=== PATIENT | male | born 2000 | race Caucasian/White ===

== ENCOUNTER 2022-05-25 12:59 | Outpatient (REF) | payer BC, SELFPAY ==
[2022-05-25 14:12] LABS: Lithium 0.21 mmol/L (0.60-1.20)
[2022-05-25 14:26] LABS: Alanine Aminotransferase 12 U/L (0-40); Albumin Level 4.8 g/dL (3.5-5.0); Alkaline Phosphatase 45 U/L (39-117); Anion Gap 12 (12-20); Aspartate Amino Transferase 17 U/L (5-37); Bilirubin Total 3.8 mg/dL (0.0-1.0); Blood Urea Nitrogen 12 mg/dL (9-16); Calcium 10.2 mg/dL (8.4-10.2); Carbon Dioxide 29 mmol/L (22-29); Chloride 102 mmol/L (96-108); Estimated Glomerular Filt Rate > 60; Glucose Random 76 mg/dL (60-115); Potassium 4.4 mmol/L (3.3-5.1); Sodium 139 mmol/L (135-145); Total Protein 7.1 g/dL (6.5-8.0)
[2022-05-25 14:47] LABS: Free T4 (Free Thyroxine) 1.17 ng/dL (0.71-1.85); Thyroid Stimulating Hormone 1.35 uIU/mL (0.32-4.0)
== END 2022-05-25 13:00 | disposition home or self-care (01) ==
LOC: HO.LAB 12:59
PROVIDERS: Visit Provider Nurse Practitioner Psychiatric/Mental Health
DX: F33.9 Major depressive disorder, recurrent, unspecified (principal)
CPT/HCPCS: 36415; 80053; 80178; 84439; 84443

== ENCOUNTER 2022-05-26 13:30 | Outpatient (RCR) | payer BC, SELFPAY ==
[2022-05-07 12:22] VITALS: BP 92/60; PULSE 68; TEMP 36.7
[2022-05-07 12:23] VITALS: BMI 20.9
--- NOTE | 2022-05-07 13:12 | HO.PS.ADMBH ---
HPI Date of Service: 05/07/22 Chief Complaint: bipolar Sources of Information: patient interviewed, chart reviewed and crisis/core team assessment reviewed HPI Narrative: Patient is a 21 year old male referred to PHP following crisis evaluation after patient reported suicidal ideation with plan. Reporting many years of depression, with symtoms worsening over the last several months, with recent loss of job identified as precipitating factor. He reports low energy, poor sleep, fair appetite, decreased self worth, constant worry, frequent tearfulness and thoughts of not wanting to be alive. Denies any history of attempts, although he has has frequent thoughts (car running in garage, hanging). At time of interview patient denies any thoughts of harming himself, denies thoughts of ending his life and identified his girlfriend as a protective factor. Trauma history reviewed in admission assessment. Outpatient psychiatric provider for the last 2 years. Does not have a therapist at this time Medication trials: - all of the ssri's -Lamictal -Risperdal -Wellbutrin -Most recently on Abilify, which he reports was effective in stabilizing mood, however when dose was increased to 5mg, patient reports extreme restlessness-? akathesia. Stopped Abiify about one week ago. -currently taking gabapentin BID which he reports is helpful with anxiety Reporting strong family history of Bipolar disorder, depression and suicide. Currently not employed. Reports losing several jobs--too overwhelmed at [employer] frustrated at other jobs and has quit Several times during interview patient reporting that he feels he has Bipolar II and is just waiting for the diagnosis on paper . This telegraphic typewriter installer inquired about patients motivation for diagnosis and he replied that his brother has Bipolar diagnosis and he has all the same symptoms. Also stated that he hopes to apply for disability while his medications are stabilized and mood managed. Reporting periods of irritability, spending a lot of money (unclear how often this has occured) Medical Evaluation Reviewed: Yes [facility] Medical History (Updated 05/09/22 @ 18:16 by Conchis Leach CNP) History of tachycardia IBS (irritable bowel syndrome) Post concussion syndrome Diagnostics Vital Signs (24Hr): Vital Signs - 24 hr 05/07/22 12:22 Temperature 98.1 F Pulse Rate 68 Blood Pressure 92/60 BMI result Body Mass Index 20.9 Meds/Allergies Meds Home Medications Medication Instructions Recorded Confirmed Type gabapentin 100 mg tablet 100 mg PO BID 05/07/22 05/07/22 History Allergies Allergies Allergy/AdvReac Type Severity Reaction Status Date / Time Dairy products Allergy Difficulty Uncoded 05/07/22 12:21 Swallowing Mental Status Exam Mental Status Exam Patient Appearance: Well Grooomed and Appropriate Level of Consciousness: Awake and Appropriate Patient Behavior: Appropriate and Talkative Mood Description: Calm Affect Description: Calm Patient Cognition Impaired: No Thought Process: Rumination Thought Content: positive for Intact Judgement: Fair Assessment & Plan Assessment & Plan (1) MDD (major depressive disorder), recurrent episode: Status: Acute Code(s): F33.9 - Major depressive disorder, recurrent, unspecified Assessment and Plan: Patient to review mood stabilizers over the weekend---reviewed lithium and trileptal. patient reporting anxiety and dislike of lab work. Wishes to review medications before trialing another medication Provided with mood questionnaire follow up next week Denies any thoughts of harming self--has plans for the weekend with friends Certification I certify that partial hospital treatment is medically necessary due to the symptoms and problems resulting from the patient's mental illness and the failure to treat the patient at the partial hospital level of care would likely result in the patient requiring inpatient psychiatric care which could not be prevented at a less intensive level of care.
[2022-05-07 15:04] LABS: Amphetamine Screen Urine Not Detected (Not Detect); Barbiturates, Urine Not Detected (Not Detect); Benzodiazepines Screen Urine Not Detected (Not Detect); Cannabinoid Screen Urine Not Detected (Not Detect); Cocaine Screen Urine Not Detected (Not Detect); Fentanyl, urine Not Detected (Not Detect); Opiate Screen Urine Not Detected (Not Detect); Phencyclidine Screen Urine Not Detected (Not Detect)
--- NOTE | 2022-05-11 16:55 | PC.NURSE ---
I met with pt and went over treatment plan, schedule, and aftercare options. He reported a desire to look for an individual therapist on his own before considering a referral to a community mental health agency. I gave him some resources to look into (psychology today search, insurance company list, etc).
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
--- NOTE | 2022-05-14 16:23 | PC.NURSE ---
I met with pt after he voices SI in group, and possible need for inpatient LOC. He shared that he told his girlfriend that he would suicide if she left for work yesterday, and that she stayed home with him. He said she subsequently contacted his parents stating her concern for him when he's not in PHP. He said he meant it that he would suicide. I suggested he go to crisis for an evaluation, and he expressed ambivalence and fear of this, and asked a lot of questions. Staff explained that we need to protect him if he is suicidal, and he said he would consider a crisis evaluation but wants to call his parents first. He spoke to his father for quite a while with staff present, and they argued for a time when pt expressed anger about father's invalidation neglect of his emotional and financial state. The discussion then became calmer, and pt said he wanted to talk further with his parents when he gets home. At this point, Ana, the program nurse joined us and we poke further about pt's needs and thoughts. At this point he said that the SI he voiced was out of anger and not serious, and said he would not act on the SI that he voiced. He clearly stated that he does not have a plan or intent to suicide, and that he wants to work on more direct communication. He assured staff that he will call crisis or 911 if he feels a similar way or gets SI over the weekend. He said he will have the crisis number on him, and programmed it in his phone. Ana offered to give pt a copy of his safety plan, and he said he would keep it in his wallet. After meeting with pt, I was informed by the program plating tank operator apprentice that pt's mother emailed this morning, expressing concern for his after his girlfriend contacted her yesterday about pt's SI. After speaking with staff, I met with pt again and he called his mother to reassure her that he is not going to harm herself I spoke with her as well about pt's safety planning, and said to call 911 or crisis if she becomes concerned again.
--- NOTE | 2022-05-18 15:44 | P.PNPSP_ITS ---
Subjective Subjective Date of Service: 05/18/22 Reason For Visit: bipolar Medical Problems Affecting Mental Status: No Interim History: Reports had SI over past week, with increased depression and anger, states ?I was really down on myself ?. States last few days mood has improved somewhat, continues with some anxiety. Interested in starting mood stabilizer at this time. Denies SI at this time. Finding gabapentin is helping somewhat with anxiety symptoms. Medication Compliance: Yes Side effects from medications: No Attending Groups: Yes Review of Systems Acute medical concerns: No Medical Review of Systems: unchanged Review of Systems Review of Systems Yes all other systems are reviewed and are negative Constitutional: Reports no additional constitutional complaints Mental Status Exam Mental Status Exam Narrative: NAD Patient Appearance: Well Grooomed and Appropriate Level of Consciousness: Awake and Appropriate Patient Behavior: Appropriate, Talkative and Good Eye Contact Mood Description: Anxious Affect Description: Anxious Patient Cognition Impaired: No Ability to Follow Directions: Good Speech Pattern: Clear and Appropriate Memory Description: Intact Hallucinations: None Delusions: Not Present Thought Process: Intact Thought Content: positive for Intact Depressive Symptoms: Increased Anxiety, Loss of Int. in Activity and Thoughts of /Suicide (over past week, none today) Judgement: Fair Diagnostics Vital Signs (24Hr): BMI result Body Mass Index 20.9 Assessment & Plan Assessment & Plan (1) MDD (major depressive disorder), recurrent episode: Status: Acute Code(s): F33.9 - Major depressive disorder, recurrent, unspecified Assessment and Plan: Patient reports episodes of hypomanic symptoms. States he would like to try a m ood stabilizer, as he believes he possibly could have bipolar disorder rather than unipolar depression. Reports took Abilify for several weeks recently, stopped as he did not like affect. Reports taking Lamictal in the past, did not like it and stopped it due to a rash. States he spoke with his psychiatric provider yesterday,Flores Davis NP, who also suggested a mood stabilizer at this time. Willing to try either lithium or Trileptal. A discussion was had regarding both medications, including risks, benefits, alternatives. Questions were answered to his satisfaction. At this time is agreeable to start lithium. Plan 1. Continue with current [facility] plan of care. 2. Start lithium 300 mg at bedtime. 3. Obtain lab work in 1 week. 4. Follow-up as per protocol. Patient educated on: diagnosis, medication risk/benefits and therapeutic strategies Informed Consent: understands Reason for contiued partial hosp. stay Substantial Risk for: harm to self, inability to function and rapid decompensation Certification I certify that partial hospital treatment is medically necessary due to the symptoms and problems resulting from the patient's mental illness and the failure to treat the patient at the partial hospital level of care would likely result in the patient requiring inpatient psychiatric care which could not be prevented at a less intensive level of care. I spent minutes with the patient and/or on the patient floor today, greater than?50% of which was spent counseling/coordinating care. Discharge Plan Discharge Attending provider: Robel Reyes Medications: New lithium carbonate 300 mg capsule 300 mg PO BEDTIME Qty: 7 0RF No Action gabapentin 100 mg Tablet 100 mg PO BID Rx Instructions: Take in the morning and afternoon.
--- NOTE | 2022-05-25 15:36 | PM.EVENT ---
Event Note Date of Service: 05/25/22 Event Note: Reviewed labs, called patient and recommend stip lithium due to bilirubin 3.8 mg/dl. Will f/u with patient tomorrow.
--- NOTE | 2022-05-26 08:18 | PC.NURSE ---
At pt's request, I emailed a referral for pt to see a therapist at [facility].
--- NOTE | 2022-05-26 12:36 | HO.PHPPROGNO ---
Subjective Subjective Date of Service: 05/26/22 Reason For Visit: bipolar Medical Problems Affecting Mental Status: No Interim History: Describes mood today as ?more numb than depressed ?. States mood continues to fluctuate from day to day, describes as ?all over the place ?. No SI, no safety concerns. Reports he believes he has borderline personality disorder, possibly mixed with bipolar disorder. Finding morning core group helpful, states difficulty with coping skills groups. Medication Compliance: Yes Side effects from medications: No Attending Groups: Yes Review of Systems Acute medical concerns: No Medical Review of Systems: unchanged Review of Systems Review of Systems Yes all other systems are reviewed and are negative Constitutional: Reports no additional constitutional complaints Mental Status Exam Mental Status Exam Narrative: NAD Patient Appearance: Well Grooomed and Appropriate Level of Consciousness: Awake and Appropriate Patient Behavior: Appropriate, Cooperative and Good Eye Contact Mood Description: Appropriate Affect Description: Appropriate Patient Cognition Impaired: No Ability to Follow Directions: Excellent Speech Pattern: Clear and Appropriate Memory Description: Intact Hallucinations: None Delusions: Not Present Thought Process: Intact Thought Content: positive for Intact Depressive Symptoms: Increased Anxiety and Loss of Int. in Activity Judgement: Fair Diagnostics Vital Signs (24Hr): BMI result Body Mass Index 20.9 Labs Labs: Reviewed recent lab work completed, including elevated bilirubin. Assessment & Plan Assessment & Plan (1) MDD (major depressive disorder), recurrent episode: Status: Acute Code(s): F33.9 - Major depressive disorder, recurrent, unspecified Assessment and Plan: Describes mood today as ?more numb than depressed ?. States mood continues to fluctuate from day to day, describes as ?all over the place ?. Reports sleep varies. States he has trouble falling asleep, wakes up several times during night. Reports relationship concerns, increased impulsive behaviors. Reports appetite switches between not eating enough or overeating. No SI, no safety concerns. Reports he believes he has borderline personality disorder, possibly mixed with bipolar disorder. Patient completed Pablo screening instrument for BPD. Checked yes for each of the 10 questions. We discussed symptoms of borderline personality disorder, as well as symptoms of bipolar 2 disorder. States that he has a huge family of bipolar disorder including suicides. Reviewed labs. [place] discontinued. Discussion of Trileptal, including risks, benefits, side effects, alternatives to treatment. Patient agreeable to starting medication at this time. Finding morning core group helpful, states difficulty with coping skills groups. Plan 1. Continue with current [facility] plan of care. 2. DC lithium. 3. Start Trileptal 300 mg b.i.d.. 4. Repeat labs Tuesday06/01/22. 5. Follow-up as per protocol. Patient educated on: diagnosis, medication risk/benefits and therapeutic strategies Informed Consent: understands Reason for contiued partial hosp. stay Substantial Risk for: harm to self and inability to function Certification I certify that partial hospital treatment is medically necessary due to the symptoms and problems resulting from the patient's mental illness and the failure to treat the patient at the partial hospital level of care would likely result in the patient requiring inpatient psychiatric care which could not be prevented at a less intensive level of care. I spent minutes with the patient and/or on the patient floor today, greater than?50% of which was spent counseling/coordinating care. Discharge Plan Discharge Attending provider: Robel Reyes Medications: New oxcarbazepine [Trileptal] 300 mg tablet 300 mg PO BID 7 Days Qty: 14 0RF No Action gabapentin 100 mg Tablet 100 mg PO BID Rx Instructions: Take in the morning and afternoon.
--- NOTE | 2022-05-27 09:26 | PC.NURSE ---
I called pt after he did not show for community meeting and did not call. He answered the phone and I spoke to him. He reported plans to go to the ED for evaluation. He said Im ready to be hospitalized now. My bags are packed. It's time. I'm going to need you guys to walk me down when I get there. Pt was driving as he spoke. He did not sound tearful or in pressured. He agreed to take himself to the ED and I agreed to call the CARE team.
--- NOTE | 2022-05-27 09:38 | PC.NURSE ---
I called the CARE team in the ED to inform them that pt is on his way to the ED for evaluation. I spoke to Cecily and she took some demographic and clinical information. She said she would call me if pt does not show up within the hour.
== END 2022-05-26 23:59 | disposition admitted as inpatient to this hospital (09) ==
LOC: HO.PHPA 13:30
PROVIDERS: Nurse Practitioner Psychiatric/Mental Health; Visit Provider Psychiatry & Neurology Psychiatry
DX: F33.9 Major depressive disorder, recurrent, unspecified (principal); Z79.899 Other long term (current) drug therapy
CPT/HCPCS: 80307; 90791; 90853

== ENCOUNTER 2022-05-27 09:39 | Inpatient (IN) | payer BC, SELFPAY ==
--- NOTE | ~2022-05-27 | CT_ITS ---
EXAMINATION: CT HEAD WITHOUT CONTRAST CLINICAL INFORMATION: Syncope. Question seizure COMPARISON: None TECHNIQUE: Contiguous axial imaging was performed from the skull base to vertex without intravenous administration of contrast. This CT examination was performed using dose optimization techniques as appropriate, variously including the following: *Automated exposure control *Adjustment of mA and/or kV according to patient size (this includes techniques or standardized protocols for targeted exams where dose is matched to indication/reason for exam; i.e. extremities or head) *Use of iterative reconstruction technique DLP: 764 mGy-cm FINDINGS: There is no acute intra-axial, extra-axial bleed, masses, collection or midline shift. The renee to white matter differentiation is maintained normal. There is a hyper and a hypodense areas in the umu likely the morning artifact from the petrous bones. The lateral ventricles are symmetrical in size and configuration without enlargement. The renee to white matter differentiation is maintained. Bone windows reveal no calvarial abnormality. There is no scalp soft tissue abnormality. CT/CT head/brain wo IV con IMPRESSION: No acute intracranial process seen.
[2022-05-27 09:45] VITALS: BP 115/77; PULSE 65; RESP 20; TEMP 36.7; O2SAT 99; BMI 21.4
--- NOTE | 2022-05-27 09:59 | ED_ITS ---
HPI - General Adult General Chief complaint: Psychiatric Symptoms Stated complaint: CRISIS Time Seen by Provider: 05/27/22 09:58 Source: patient Mode of arrival: ambulatory Limitations: no limitations History of Present Illness HPI narrative: Patient is a 21 year old male presenting to the emergency department today with increased racing thoughts and suicidal ideation. Patient states that as of lately his thoughts have been much harder to sort through and he is feeling suicidal. Patient states that he called the crisis line and they recommended he come in to the hospital. Patient denies any dizziness, lightheadedness, abdominal pain, nausea, vomiting, fever, chills, blurry vision, double vision, loss of vision, chest pain, difficulty breathing, shortness of breath, back pain, night sweats, pain with urination, increased urinary frequency, increased urinary urgency, blood in his urine or stool, syncope or a near syncopal episode, recent trauma or falls, bowel incontinence, bladder incontinence, bowel retention, bladder retention, or any other complaints at this time. Radiation: non-radiation Severity: mild Severity scale (1-10): 3 Relieving factors: none Exacerbating factors: none Associated symptoms: denies other symptoms Treatments prior to arrival: none Related Data Home Medications Medication Instructions Recorded Confirmed gabapentin 100 mg tablet 100 mg PO BID 05/07/22 05/07/22 Previous Rx's Medication Instructions Recorded oxcarbazepine 300 mg tablet 300 mg PO BID 7 days #14 tabs 05/26/22 (Trileptal) Allergies Allergy/AdvReac Type Severity Reaction Status Date / Time Dairy products Allergy Difficulty Uncoded 05/07/22 12:21 Swallowing Review of Systems Constitutional: Constitutional: Reports no additional constitutional complaints, Denies chills, Denies fever(s) and Denies night sweats Eyes: Eyes: Reports no additional eye complaints, Denies blurry vision, Denies change in vision, Denies diplopia, Denies eye discharge, Denies loss of vision and Denies eye pain ENT: Denies dizziness Cardiovascular: Cardiovascular: Reports no additional cardiovascular complaints, Denies chest pain, Denies lightheadedness, Denies Loss of Consciousness and Denies dyspnea Respiratory: Respiratory: Reports no additional respiratory complaints and Denies dyspnea Gastrointestinal: Gastrointestinal: Reports no additional gastrointestinal complaints, Denies abdominal pain, Denies melena, Denies hematochezia, Denies change in bowel habits and Denies change in stool character Genitourinary: Genitourinary: Reports no additional male genitourinary complaints, Denies hematuria, Denies oliguria, Denies difficulty urinating, Denies dysuria, Denies urinary frequency, Denies urinary hesitancy, Denies urinary incontinence and Denies urinary urgency Musculoskeletal: Musculoskeletal: Reports no additional musculoskeletal complaints, Denies numbness and Denies tingling Neurologic: Denies dizziness, Denies loss of vision, Denies numbness and Denies tingling Psychiatric: Psychiatric: Reports no additional psychiatric complaints and Reports suicidal ideation Endocrine: Endocrine: Reports no additional endocrine complaints Hematologic/Lymphatic: Hematologic/Lymphatic: Reports no additional hematologic/lymphatic complaints Allergic/Immunologic: Allergic/Immunologic: Reports no additional allergic/immunologic complaints [facility] Past Medical History Attestation statement: The following information was validated with the patient. Source: old records reviewed Medical History History of tachycardia IBS (irritable bowel syndrome) Post concussion syndrome Social History Social History Household Members: Significant Other and Family Patient Tobacco Use Status: Former Tobacco user Advance Directives: No Advance Directives Information Provided: No Healthcare Proxy: No Guardian: No Physical Exam ED Vital Signs: Vital Signs - 24 hr 05/27/22 09:45 Temperature 98.0 F Pulse Rate 65 Respiratory Rate 20 Blood Pressure 115/77 Pulse Oximetry 99 Oxygen Delivery Method Room Air BMI result Body Mass Index 21.4 Const General: cooperative, no acute distress, alert and awake Nutritional Appearance: well nourished Orientation/consciousness: patient oriented x3 Limitations: no limitations [facility] Head: Yes normal to inspection and Yes atraumatic Ears: hearing grossly normal bilaterally and external ears normal General nose exam: Normal external nose present, no nasal discharge noted and no epistaxis Face and sinus: Yes normal facial exam, No abrasion and No laceration Mouth: Normal oral and palatal mucosa present, no drooling and no muffled voice Eyes General: appearance normal, both eyes and all related structures Periorbital: periorbital findings normal Eyelids: Yes eyelids normal Conjunctivae: conjunctivae normal Pupils: Equal, round and reactive pupils present EOM: EOMs intact bilaterally Neck Neck: Yes normal visual inspection, Yes full ROM and Yes no lymphadenopathy Chest Chest palpation & inspection: normal inspection of the chest Resp Effort & Inspection: normal respiratory effort and able to speak in complete sentences Auscultation: clear to auscultation bilaterally Cardio Rate: regular rate Rhythm: regular rhythm GI Inspection: Yes normal to inspection Neuro General: patient oriented x3 and moves all extremities Cranial nerves: Yes Equal, round and reactive pupils present Cognition (Neuro): normal cognition Motor exam (neuro): 5/5 motor strength present throughout Sensory Exam: Normal double simultaneous stimulation for sensation Coordination: [id number] test normal Extrem General: Yes normal to inspection, Yes full ROM and Yes capillary refill normal Psych Appearance: grossly normal Mental Status: mental status grossly normal Affect: normal affect Attitude: cooperative Thought process: Normal thought process present Thought content: Normal thought content present Insight: Good insight present (Psych) Medical Decision Making MDM Narrative Medical decision making narrative: Patient is a 21 year old male presenting to the emergency department today with suicidal ideation. Patient's physical exam was unremarkable. Patient's blood work was unremarkable. I explained my physical exam findings as well as all test results to the patient. I answered all questions asked by the patient. Patient was evaluated by CARE team who recommended admission for the patient for psychiatric care. Patient verbalized agreement and understanding with this treatment plan and admission. Medical Records Medical records reviewed: Yes I reviewed the patient's medical records. Lab Data Lab results reviewed: Yes I reviewed the patient's lab results. Result diagrams: 05/27/22 10:10 05/27/22 10:10 Labs: Lab Results 05/27/22 05/27/22 05/27/22 Range/Units 10:05 10:10 10:10 WBC 5.7 (4.8-10.8) X10*3/uL RBC 4.83 (4.60-5.80) X10*6/uL Hgb 14.6 (14.0-18.0) g/dl Hct 42.1 (42.0-52.0) % MCV 87.2 (80.0-98.0) fL MCH 30.2 (27.0-33.0) pg MCHC 34.7 (31.0-36.0) g/dl RDW 11.8 (11.0-16.0) % Plt Count 235 (160-400) X10*3/uL MPV 9.2 L (9.4-12.4) fL Immature Gran % (Auto) 0.2 (0.0-0.4) % Neut % (Auto) 53.0 (45-73) % Lymph % (Auto) 37.7 (20-40) % Grant % (Auto) 6.5 (2-11) % Eos % (Auto) 2.1 (0-4) % Baso % (Auto) 0.5 (0-2) % Lymph # (Auto) 2.1 (1.2-4.9) X10*3/uL Grant # (Auto) 0.4 (0.1-1.2) X10*3/uL Eos # (Auto) 0.1 (0.0-0.4) X10*3/uL Baso # (Auto) 0.0 (0.0-0.2) X10*3/uL Abs Immat Gran (auto) 0.01 (0.00-0.03) X10*3/uL Absolute Neuts (auto) 3.0 (2.0-8.3) x10*3/uL Absolute Nucleated RBC 0.000 (0.0-0.012) X10*3/uL Nucleated RBC % (auto) 0.0 (0.0-0.2) /100WBC Sodium 140 (135-145) mmol/L Potassium 4.2 (3.3-5.1) mmol/L Chloride 104 (96-108) mmol/L Carbon Dioxide 29 (22-29) mmol/L Anion Gap 11 L (12-20) BUN 13 (9-16) mg/dL Creatinine 0.86 (0.5-1.4) mg/dL Estim Creat Clear Calc 126.4 Estimated GFR > 60 Random Glucose 89 (60-115) mg/dL Calcium 9.6 (8.4-10.2) mg/dL Total Bilirubin 2.0 H (0.0-1.0) mg/dL AST 13 (5-37) U/L ALT 9 (0-40) U/L Alkaline Phosphatase 46 (39-117) U/L Total Protein 6.7 (6.5-8.0) g/dL Albumin 4.5 (3.5-5.0) g/dL Salicylates < 5.0 L (15-30) mg/dL Urine Opiates Screen (Not Detect) Urine Fentanyl Screen (Not Detect) Acetaminophen < 1 (<30) mcg/mL Ur Barbiturates Screen (Not Detect) Ur Phencyclidine Scrn (Not Detect) Ur Amphetamines Screen (Not Detect) U Benzodiazepines Scrn (Not Detect) Urine Cocaine Screen (Not Detect) U Marijuana (THC) Screen (Not Detect) Ethyl Alcohol < 10 mg/dL COVID-19 (ALESSIO) Negative (Negative) COVID-19 Clin Com See Note 05/27/22 Range/Units 15:54 WBC (4.8-10.8) X10*3/uL RBC (4.60-5.80) X10*6/uL Hgb (14.0-18.0) g/dl Hct (42.0-52.0) % MCV (80.0-98.0) fL MCH (27.0-33.0) pg MCHC (31.0-36.0) g/dl RDW (11.0-16.0) % Plt Count (160-400) X10*3/uL MPV (9.4-12.4) fL Immature Gran % (Auto) (0.0-0.4) % Neut % (Auto) (45-73) % Lymph % (Auto) (20-40) % Grant % (Auto) (2-11) % Eos % (Auto) (0-4) % Baso % (Auto) (0-2) % Lymph # (Auto) (1.2-4.9) X10*3/uL Grant # (Auto) (0.1-1.2) X10*3/uL Eos # (Auto) (0.0-0.4) X10*3/uL Baso # (Auto) (0.0-0.2) X10*3/uL Abs Immat Gran (auto) (0.00-0.03) X10*3/uL Absolute Neuts (auto) (2.0-8.3) x10*3/uL Absolute Nucleated RBC (0.0-0.012) X10*3/uL Nucleated RBC % (auto) (0.0-0.2) /100WBC Sodium (135-145) mmol/L Potassium (3.3-5.1) mmol/L Chloride (96-108) mmol/L Carbon Dioxide (22-29) mmol/L Anion Gap (12-20) BUN (9-16) mg/dL Creatinine (0.5-1.4) mg/dL Estim Creat Clear Calc Estimated GFR Random Glucose (60-115) mg/dL Calcium (8.4-10.2) mg/dL Total Bilirubin (0.0-1.0) mg/dL AST (5-37) U/L ALT (0-40) U/L Alkaline Phosphatase (39-117) U/L Total Protein (6.5-8.0) g/dL Albumin (3.5-5.0) g/dL Salicylates (15-30) mg/dL Urine Opiates Screen Not Detected (Not Detect) Urine Fentanyl Screen Not Detected (Not Detect) Acetaminophen (<30) mcg/mL Ur Barbiturates Screen Not Detected (Not Detect) Ur Phencyclidine Scrn Not Detected (Not Detect) Ur Amphetamines Screen Not Detected (Not Detect) U Benzodiazepines Scrn Not Detected (Not Detect) Urine Cocaine Screen Not Detected (Not Detect) U Marijuana (THC) Screen Not Detected (Not Detect) Ethyl Alcohol mg/dL COVID-19 (ALESSIO) (Negative) COVID-19 Clin Com Discharge Plan Discharge Clinical Impression: MDD (major depressive disorder), recurrent episode Patient Disposition: Still a Patient Instructions: Depression (ED) Prescriptions: No Action gabapentin 100 mg Tablet 100 mg PO BID Rx Instructions: Take in the morning and afternoon. oxcarbazepine [Trileptal] 300 mg tablet 300 mg PO BID 7 Days Qty: 14 0RF Print Language: Kiswahili
[2022-05-27 10:20] LABS: MANUAL DIFF FLAG NO
[2022-05-27 10:21] LABS: Basophils Percent Auto 0.5 % (0-2); Eosinophils Absolute Auto 0.1 X10*3/uL (0.0-0.4); Eosinophils Percent Auto 2.1 % (0-4); Hematocrit 42.1 % (42.0-52.0); Hemoglobin 14.6 g/dl (14.0-18.0); Imm Gran Abs Auto 0.01 X10*3/uL (0.00-0.03); Imm Gran Pct Auto 0.2 % (0.0-0.4); Lymphocytes Absolute Auto 2.1 X10*3/uL (1.2-4.9); Lymphocytes Percent Auto 37.7 % (20-40); Mean Corpuscular HGB Conc 34.7 g/dl (31.0-36.0); Mean Corpuscular Hemoglobin 30.2 pg (27.0-33.0); Mean Corpuscular Volume 87.2 fL (80.0-98.0); Mean Platelet Volume 9.2 fL (9.4-12.4); Monocytes Absolute Auto 0.4 X10*3/uL (0.1-1.2); Monocytes Percent Auto 6.5 % (2-11); Platelet Count 235 X10*3/uL (160-400); Red Blood Count 4.83 X10*6/uL (4.60-5.80); Red Cell Distribution Width 11.8 % (11.0-16.0); White Blood Count 5.7 X10*3/uL (4.8-10.8)
[2022-05-27 10:43] LABS: Acetaminophen LAB < 1 mcg/mL (<30); Alanine Aminotransferase 9 U/L (0-40); Albumin Level 4.5 g/dL (3.5-5.0); Alkaline Phosphatase 46 U/L (39-117); Anion Gap 11 (12-20); Aspartate Amino Transferase 13 U/L (5-37); Blood Urea Nitrogen 13 mg/dL (9-16); Calcium 9.6 mg/dL (8.4-10.2); Carbon Dioxide 29 mmol/L (22-29); Chloride 104 mmol/L (96-108); Creatinine Clr Calc Pharmacy 126.4; Estimated Glomerular Filt Rate > 60; Ethanol < 10 mg/dL; Glucose Random 89 mg/dL (60-115); Potassium 4.2 mmol/L (3.3-5.1); Salicylate < 5.0 mg/dL (15-30); Sodium 140 mmol/L (135-145); Total Protein 6.7 g/dL (6.5-8.0)
[2022-05-27 10:59] LABS: COVID-19 Test Negative (Negative); IDNOW Serial# 9DB6401D
[2022-05-27 16:25] LABS: Amphetamine Screen Urine Not Detected (Not Detect); Barbiturates, Urine Not Detected (Not Detect); Benzodiazepines Screen Urine Not Detected (Not Detect); Cannabinoid Screen Urine Not Detected (Not Detect); Cocaine Screen Urine Not Detected (Not Detect); Fentanyl, urine Not Detected (Not Detect); Opiate Screen Urine Not Detected (Not Detect); Phencyclidine Screen Urine Not Detected (Not Detect)
[2022-05-27 23:19] VITALS: BP 116/68; PULSE 72; RESP 16; TEMP 36.7; O2SAT 99
[2022-05-27 23:45] VITALS: BP 104/59; PULSE 55; RESP 18; TEMP 36.9; O2SAT 99
[2022-05-28] MEDS: hydrOXYzine HCL 25 MG TABLET PO (00:28)
[2022-05-28] MEDS: Gabapentin 100 MG CAPSULE PO ×3 (00:42→20:50)
[2022-05-28 04:42] VITALS: BMI 21.4
--- NOTE | 2022-05-28 05:52 | PC.ADMIT ---
Pt is a 21 year old male admitted to the unit after referral from the CARE team at [facility]. Arrived on unit at 2340. Legal status: CV. Medical: pt reports hx tachycardia, unsure age of onset, denies current treatment. Substance use: pt reports having 1 beer every tuesday after his hockey game. Denies current or hx of other substance use. Pt has 1 prior inpatient admission at [facility] approx. 1 month ago after a reported suicide attempt of trying to hang himself. Pt reported that he has been suffering from depression, anxiety, and PTSD since approx. 10 years old. He reported being diagnosed with bipolar d/o a few months ago and curently being in the process of being diagnosed with borderline personality d/o. He states that he has been feeling suicidal for about 2 years, states mostly passive SI of thoughts of not wanting to live anymore. Pt states he had been attending PHP at [facility] when he was referred for assessment for inpatient admission. He reports occasional AH of people yelling at him. He states he has been either oversleeping or not sleeping well and waking frequently throughout the night. Pt reports that he tends to overeat or not eat much when feeling stressed. He reports gaining 10 lbs since being admitted at [facility]. Pt acknowledges a hx of PTSD and experiencing flaashbacks and nightmares. Pt is hoping to be arranged with a new therapist after discharge. Pt denies current active SI, but does report passive thoughts; he reports feeling safe on the unit and will seek out staff if needed. He was cooperative throughout assessment, some anxiety reported. Provider notified of admission and orders obtained. Pt placed on 15 minute safety checks.
[2022-05-28 08:00] VITALS: BP 55/28; PULSE 51; TEMP 36.7; O2SAT 98
[2022-05-28 08:10] VITALS: BP 55/24; PULSE 54; RESP 20; TEMP 36.7; O2SAT 97
--- NOTE | 2022-05-28 08:27 | PM.EVENT ---
Documented by User: ROSALINA Nguyen 05/28/22 16:29 Event Note Date of Service: 05/28/22 Event Note: Rapid response called on pt around 815am this morning for seizure during blood draw. 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 No other tonic/clonic movements. Pt has no history seizures but does report hx vasovagal episodes during blood draws. Pt disoriented upon waking but quickly becomes lucid and is a&o x4. VS BP 102/55, HR 55, 100% RA. Heart RRR, no murmurs, lungs cta. No pallor. EKG shows NSR. Pt feels tired but denies ongoing lightheadedness. No cp, sob, palpitations, headaches, confusion. Post like vasovagal reaction to blood draw. However, given seizure reported by staff, will order neuro checks, neuro consult, and head ct. Orhostatic vs in several hours. Recommend increased fluid intake. Will recheck pt in several hours. Documented by User: Jared Baron MD 05/30/22 12:04 Event Note Date of Service: 05/30/22
[2022-05-28 08:59] LABS: Glucose, Whole Blood 80 mg/dL (60-115)
[2022-05-28 09:12] LABS: Estimated Average Glucose 88 mg/dL; Hemoglobin A1c % 4.7 %
[2022-05-28 10:02] LABS: Free T4 (Free Thyroxine) 1.13 ng/dL (0.71-1.85); Thyroid Stimulating Hormone 1.61 uIU/mL (0.32-4.0)
[2022-05-28 10:06] LABS: Folate 13.6 ng/mL (> or = 4.0); Vitamin B12 288 pg/mL (200-900)
[2022-05-28 10:51] LABS: Alanine Aminotransferase 8 U/L (0-40); Albumin Level 4.2 g/dL (3.5-5.0); Alkaline Phosphatase 45 U/L (39-117); Anion Gap 13 (12-20); Aspartate Amino Transferase 13 U/L (5-37); Bilirubin Total 3.4 mg/dL (0.0-1.0); Blood Urea Nitrogen 14 mg/dL (9-16); Calcium 9.6 mg/dL (8.4-10.2); Carbon Dioxide 28 mmol/L (22-29); Chloride 104 mmol/L (96-108); Cholesterol 129 mg/dL; Creatinine Clr Calc Pharmacy 123.5; Estimated Glomerular Filt Rate > 60; Glucose Fasting 84 mg/dL (60-99); HDL Cholesterol 42 mg/dL; LDL Cholesterol Calculated 70 mg/dl; Potassium 4.1 mmol/L (3.3-5.1); Sodium 141 mmol/L (135-145); Total Protein 6.5 g/dL (6.5-8.0); Triglycerides 87 mg/dL
[2022-05-28 12:00] VITALS: BP 114/58; PULSE 67
--- NOTE | 2022-05-28 12:01 | PM.NEUROCN ---
History of Present Illness Data of Consult Service Date: 05/28/22 Primary Care Provider: Unknown Physician HPI Reason for consult: Syncope 21 years old man I was asked to see on psychiatric floor. He was admitted there for racing thoughts and suicidal ideation. At 1 point a follow-up bottom is was drawing blood when he passed out. He said that he was laying in his bed flat when that happened. In the past he had either passed out or feeling of passing out while drawing blood. This time he was noted to be unresponsive and some convulsion were noted in his arms. he became responsive after few seconds and there was no obvious postictal confusion. Review of Systems Review of Systems: No recent shortness of breath palpitation or seizure-like episode PMFSH Past Medical History Medical History History of tachycardia IBS (irritable bowel syndrome) Post concussion syndrome Social History Social History Household Members: Family Household Members Other:: lives w/ mother & girlfriend Housing: House Do you presently have visiting nurse or other home services: No Patient Tobacco Use Status: Former Tobacco user Use of substances other than those prescribed or required for medical reasons: No Have you been hit, kicked, punched, or otherwise hurt by someone within the past year? If so, by whom?: No Do you feel safe in your current relationship?: Yes Is there a partner from a previous relationship who is making you feel unsafe now?: No Are you made to feel afraid or neglected: No Spiritual Healthcare Practices: none identified Yarsanism Healthcare Practices: none identified Cultural Healthcare Practices: none identified Advance Directives: No Advance Directives Information Provided: No Healthcare Proxy: No Guardian: No Do you have thoughts of harming others: None Do you have a plan to hurt others: No Plan Recently lost weight without trying: No Eating poorly because of decreased appetite: Yes Nutrition Risks: Recent weight gain Poor oral hygiene: No service: No Sexual orientation: Straight/Heterosexual Meds Allergies Allergy/AdvReac Type Severity Reaction Status Date / Time Dairy products Allergy Difficulty Uncoded 05/28/22 04:43 Swallowing Active Medications: Current Medications Acetaminophen (Acetaminophen 325 Mg Tablet) 650 mg PO Q6H PRN PRN Reason: Headache/Pain Mild Scale (1-3) Al Hydroxide/Mg Hydroxide (Magnesium Hydrox/Alum Hydrox 30 Ml Oral.Susp) 30 ml PO Q6H PRN PRN Reason: Heartburn/Nausea Aripiprazole (Aripiprazole 5 Mg Tablet) 5 mg PO DAILY [facility] Last Admin: 05/28/22 11:46 Dose: Not Given Gabapentin (Gabapentin 100 Mg Capsule) 100 mg PO BID [facility] Last Admin: 05/28/22 11:46 Dose: 100 mg Hydroxyzine HCl (Hydroxyzine Hcl 25 Mg Tablet) 25 mg PO Q6H PRN PRN Reason: Anxiety Last Admin: 05/28/22 00:28 Dose: 25 mg Lamotrigine (Lamotrigine 25 Mg Tablet) 25 mg PO DAILY [facility] Last Admin: 05/28/22 11:47 Dose: Not Given Magnesium Hydroxide (Milk Of Magnesia 30 Ml Oral.Susp) 30 ml PO DAILY PRN PRN Reason: Constipation Oxcarbazepine (Oxcarbazepine 300 Mg Tablet) 300 mg PO BID [facility] Last Admin: 05/28/22 11:47 Dose: Not Given Trazodone HCl (Trazodone Hcl 50 Mg Tablet) 50 mg PO BEDTIME PRN PRN Reason: Insomnia Home Medications Medication Instructions Recorded Confirmed Last Taken Type gabapentin 100 mg capsule 100 mg PO BID 05/27/22 05/27/22 Unknown History oxcarbazepine 300 mg tablet 1 tab PO BID 05/27/22 05/27/22 Unknown History Physical Exam Vital Signs: Vital Signs: Last Vital Signs Temp 98.1 F 05/28/22 08:10 Pulse 54 05/28/22 08:10 Resp 20 05/28/22 08:10 BP 55/24 L 05/28/22 08:10 Pulse Ox 97 05/28/22 08:10 O2 Del Method 05/28/22 08:10 BMI result Body Mass Index 21.4 Neuro: Other: he was alert and awake with normal spontaneity of speech fluency comprehension and affect. Pupils are equal and reactive to light extraocular muscles are intact. Visual watt are full. Face is symmetrical. There is no pronator drift. Deep tendon reflexes are 1+ with flexor plantars. Balance gait and coordination are normal. Speech is normal. Results Labs CBC & Chem 7: 05/27/22 10:10 05/28/22 07:56 Labs: BMP 05/28/22 07:56 Sodium 141 Potassium 4.1 Chloride 104 Carbon Dioxide 28 BUN 14 Creatinine 0.88 Calcium 9.6 Liver Function 05/28/22 Range/Units 07:56 Total Bilirubin 3.4 H (0.0-1.0) mg/dL AST 13 (5-37) U/L ALT 8 (0-40) U/L Alkaline Phosphatase 45 (39-117) U/L Albumin 4.2 (3.5-5.0) g/dL Noncontrast head CT did not reveal any significant abnormality. His blood pressure numbers were significantly low and the last blood pressure was 55/24. Assessment and Plan (1) Vasovagal syncope: Status: Acute (2) Convulsive syncope: Status: Acute 21 years old man with previous history of either feeling lightheaded or passing out while having blood draw had a similar episode with unresponsiveness and few seconds of convulsion or stiffness of arms. His blood pressure around that time was low and even his last mean arterial pressure was 63, which was low. Likely explanation was drop in blood pressure due to blood draw and resulting convulsive syncope. He should be advised to have this kind of activity in flat position and should also consider elevating his legs at that time. Some patients are much more prone to this type of problem if there underlying blood pressure is on the lower side, which seems to be in his case. Caution is also advised while prescribing medicines to avoid drop in blood pressure Procedures Date of Service Date of Service: 05/28/22
--- NOTE | 2022-05-28 15:54 | HO.PSYADMNOT ---
HPI Date of Service: 05/28/22 Chief Complaint: Recurrent Major Depression; SI Sources of Information: patient interviewed, chart reviewed and crisis/core team assessment reviewed HPI Subjective Notes: Shukla Warning and Conditional Voluntary Narrative: Patient is a 21 year old male with a history of anxiety, depression, possibly PTSD, encouraged by PHP to self present for depression and suicidal thinking. Patient reports that he has been overall depressed and will sometimes have really down days which typically only last for about a day. Patient had a such day this past week where he had suicidal thinking, though he denies any plan or intent and so self presented. Patient says that sometimes he can get a 2 week period of feeling severely depressed were has no motivation and can hardly get out of bed (He reports low energy, poor sleep, fair appetite, decreased self worth, constant worry, frequent tearfulness and thoughts of not wanting to be alive); however mostly he experiences up and down mood that fluctuates throughout the day; patient says he can be content in the morning and then will get triggered by something, a thought or in interaction, and become angry or depressed which only lasts for an hour or so but never more than a day; that said the depressive moments can be filled with hopeless feelings and thoughts that life is not worth living or he will never get better and can be accompanied by SI. Patient denies any discrete manic episodes or behaviors, however he reports strong family history of bipolar disorder. Patient says that he has failed many antidepressants, however when he lists them there are only 3: Prozac which he only took for a week, Wellbutrin which he took as the child and Zoloft which he said he took years ago and does not know the dose. Patient seemed to want to encouraged to diagnosis of bipolar disorder and would sometimes alter his reporting and said he would spend lots of money or feel like having sex with women other than his girlfriend; keno writer / runner inquired if he wanted a diagnosis of bipolar disorder and patient said he does not want it... He just wants to feel better. Patient said recently he looked at a list for borderline personality disorder and felt that it fit him very well. Patient endorses a history of trauma though does not disclose details; he has intermittent flashbacks but not commonly; some triggers like loud noises and slamming doors bother; no nightmares. Patient denies drug or alcohol abuse. Patient was recently started on Trileptal. Past Psychiatric History: Recently at [facility] No history of psychiatric admissions Reports 2 suicide attempts, most recently about a year ago Outpatient psychiatric provider for the last 2 years. Does not have a therapist at this time Medication trials: Prozac; low-dose for only 7 days Zoloft: Not sure dose duration -Lamictal: Got a rash but it does not sound like Praveen Itz's -Risperdal -Wellbutrin; but only as a child -Most recently on Abilify, which he reports was effective in stabilizing mood, however when dose was increased to 5mg, patient reports extreme restlessness-? akathesia. Stopped Abiify few weeks ago -currently taking gabapentin BID which he reports is helpful with anxiety and irritable bowel -was on lithium but was discovered to have elevated bilirubin so was discontinued; patient denied any side effects; it is possible that bilirubin was elevated prior to lithium's initiation and the two our unrelated Medical Evaluation Reviewed: Yes Rapid response called on pt around 815am this morning for seizure during blood draw. Pt having routine labs drawn began feeling light headed and appeared to have syncopized per laborer road with arms flexed bilaterally. No other tonic/clonic movements. Pt has no history seizures but does report hx vasovagal episodes during blood draws. Pt disoriented upon waking but quickly becomes lucid and is a&o x4. VS BP 102/55, HR 55, 100% RA. Heart RRR, no murmurs, lungs cta. No pallor. EKG shows NSR. Pt feels tired but denies ongoing lightheadedness. No cp, sob, palpitations, headaches, confusion. Post like vasovagal reaction to blood draw. However, given seizure reported by staff, will order neuro checks, neuro consult, and head ct. Orhostatic vs in several hours. Recommend increased fluid intake. Will recheck pt in several hours. [facility] Medical History (Updated 05/28/22 @ 12:05 by Blake Rendon MD) History of tachycardia IBS (irritable bowel syndrome) Post concussion syndrome Family History: Reporting strong family history of Bipolar disorder, depression and suicide. Social History: Currently not employed. Reports losing several jobs--too overwhelmed at [employer] frustrated at other jobs and has quit Substance History: Denies Trauma History: Patient says history of trauma but does not reveal Diagnostics Vital Signs (24Hr): Vital Signs - 24 hr 05/27/22 23:19 05/27/22 23:45 05/28/22 08:00 Temperature 98.1 F 98.4 F 98.0 F Pulse Rate 72 55 51 Respiratory Rate 16 18 Blood Pressure 116/68 104/59 L 55/28 L Pulse Oximetry 99 99 98 Oxygen Delivery Method Room Air Room Air Room Air 05/28/22 08:10 05/28/22 12:00 Temperature 98.1 F Pulse Rate 54 67 Respiratory Rate 20 Blood Pressure 55/24 L 114/58 L Pulse Oximetry 97 Oxygen Delivery Method Room Air BMI result Body Mass Index 21.4 Labs Results: 05/27/22 10:10 05/28/22 07:56 Labs: Laboratory Results - last 48 hr 05/27/22 05/27/22 05/27/22 10:05 10:10 10:10 WBC 5.7 RBC 4.83 Hgb 14.6 Hct 42.1 MCV 87.2 MCH 30.2 MCHC 34.7 RDW 11.8 Plt Count 235 MPV 9.2 L Immature Gran % (Auto) 0.2 Neut % (Auto) 53.0 Lymph % (Auto) 37.7 [place] % (Auto) 6.5 Eos % (Auto) 2.1 Baso % (Auto) 0.5 Lymph # (Auto) 2.1 [place] # (Auto) 0.4 Eos # (Auto) 0.1 Baso # (Auto) 0.0 Abs Immat Gran (auto) 0.01 Absolute Neuts (auto) 3.0 Absolute Nucleated RBC 0.000 Nucleated RBC % (auto) 0.0 Sodium 140 Potassium 4.2 Chloride 104 Carbon Dioxide 29 Anion Gap 11 L BUN 13 Creatinine 0.86 Estim Creat Clear Calc 126.4 Estimated GFR > 60 POC Glucose Random Glucose 89 Fasting Glucose Estimat Average Glucose Hemoglobin A1c % Calcium 9.6 Magnesium Total Bilirubin 2.0 H AST 13 ALT 9 Alkaline Phosphatase 46 Total Protein 6.7 Albumin 4.5 Triglycerides Cholesterol LDL Cholesterol, Calc HDL Cholesterol Vitamin B12 Folate TSH Free T4 Salicylates < 5.0 L Urine Opiates Screen Urine Fentanyl Screen Acetaminophen < 1 Ur Barbiturates Screen Ur Phencyclidine Scrn Ur Amphetamines Screen U Benzodiazepines Scrn Urine Cocaine Screen U Marijuana (THC) Screen Ethyl Alcohol < 10 COVID-19 (ALESSIO) Negative COVID-19 Clin Com See Note 05/27/22 05/28/22 05/28/22 15:54 07:56 07:56 WBC RBC Hgb Hct MCV MCH MCHC RDW Plt Count MPV Immature Gran % (Auto) Neut % (Auto) Lymph % (Auto) [place] % (Auto) Eos % (Auto) Baso % (Auto) Lymph # (Auto) [place] # (Auto) Eos # (Auto) Baso # (Auto) Abs Immat Gran (auto) Absolute Neuts (auto) Absolute Nucleated RBC Nucleated RBC % (auto) Sodium 141 Potassium 4.1 Chloride 104 Carbon Dioxide 28 Anion Gap 13 BUN 14 Creatinine 0.88 Estim Creat Clear Calc 123.5 Estimated GFR > 60 POC Glucose Random Glucose Fasting Glucose 84 Estimat Average Glucose 88 Hemoglobin A1c % 4.7 Calcium 9.6 Magnesium 2.0 Total Bilirubin 3.4 H AST 13 ALT 8 Alkaline Phosphatase 45 Total Protein 6.5 Albumin 4.2 Triglycerides 87 Cholesterol 129 LDL Cholesterol, Calc 70 HDL Cholesterol 42 Vitamin B12 Folate TSH 1.61 Free T4 1.13 Salicylates Urine Opiates Screen Not Detected Urine Fentanyl Screen Not Detected Acetaminophen Ur Barbiturates Screen Not Detected Ur Phencyclidine Scrn Not Detected Ur Amphetamines Screen Not Detected U Benzodiazepines Scrn Not Detected Urine Cocaine Screen Not Detected U Marijuana (THC) Screen Not Detected Ethyl Alcohol COVID-19 (ALESSIO) COVID-19 Clin Com 05/28/22 05/28/22 07:56 08:17 WBC RBC Hgb Hct MCV MCH MCHC RDW Plt Count MPV Immature Gran % (Auto) Neut % (Auto) Lymph % (Auto) [place] % (Auto) Eos % (Auto) Baso % (Auto) Lymph # (Auto) [place] # (Auto) Eos # (Auto) Baso # (Auto) Abs Immat Gran (auto) Absolute Neuts (auto) Absolute Nucleated RBC Nucleated RBC % (auto) Sodium Potassium Chloride Carbon Dioxide Anion Gap BUN Creatinine Estim Creat Clear Calc Estimated GFR POC Glucose 80 Random Glucose Fasting Glucose Estimat Average Glucose Hemoglobin A1c % Calcium Magnesium Total Bilirubin AST ALT Alkaline Phosphatase Total Protein Albumin Triglycerides Cholesterol LDL Cholesterol, Calc HDL Cholesterol Vitamin B12 288 Folate 13.6 TSH Free T4 Salicylates Urine Opiates Screen Urine Fentanyl Screen Acetaminophen Ur Barbiturates Screen Ur Phencyclidine Scrn Ur Amphetamines Screen U Benzodiazepines Scrn Urine Cocaine Screen U Marijuana (THC) Screen Ethyl Alcohol COVID-19 (ALESSIO) COVID-19 Clin Com Imaging Radiology Impressions: ITS Impressions Head CT 05/28/22 09:46 IMPRESSION: No acute intracranial process seen. Meds/Allergies Meds Home Medications Medication Instructions Recorded Confirmed Type gabapentin 100 mg capsule 100 mg PO BID 05/27/22 05/27/22 History oxcarbazepine 300 mg tablet 1 tab PO BID 05/27/22 05/27/22 History Allergies Allergies Allergy/AdvReac Type Severity Reaction Status Date / Time Dairy products Allergy Difficulty Uncoded 05/28/22 04:43 Swallowing Mental Status Exam Mental Status Exam Narrative: Pt is alert and oriented; behavior is cooperative, friendly and calm; patient is not in distress; dressed in casual attire with unkempt hair but adequate hygiene; mood is described as ok and affect a little blunted; eye contact appropriate; Speech is normal rate, volume and prosody and not pressured; no psychomotor agitation/retardation present; thought process is organized and goal directed; Thought content is on diagnosis; otherwise pertinent to relevant topics and without any delusional content, paranoid ideations or grandiosity; Says SI resolved and denies any SI/HI. There is no evidence of perceptual disturbance. Patients insight and judgment are impaired. Assessment & Plan Assessment & Plan (1) MDD (major depressive disorder), recurrent episode: Status: Acute Code(s): F33.9 - Major depressive disorder, recurrent, unspecified (2) Vasovagal syncope: Status: Acute Code(s): R55 - Syncope and collapse Plan Patient is a 21 year old male with a history of anxiety, depression, possibly PTSD, encouraged by PHP to self present for depression and suicidal thinking. Patient reports what sounds like chronic moderate depression that can sometimes get severe; also reports that his mood can fluctuate throughout the day from content to angry to sad, with each feeling lasting an hour or so but never more than a day. Denies any discrete manic episodes or behaviors however patient seems to feel he has bipolar disorder. Patient wants to get back on lithium; bilirubin levels were increased but this may have been an incidental finding when lithium labs were checked. Patient currently denies SI and says he feels outpatient PHP remains his best option And placed a 3 day notice plan: Plan: CV; 3 day notice Continue gabapentin Continue Trileptal for now Patient would like to retry it lithium; will consider as he does not want typical antidepressants Patient educated on: diagnosis, medication risk/benefits and therapeutic strategies Informed Consent: understands Reason for continued inpatient stay Substantial Risk for: rapid decompensation
[2022-05-28 20:42] VITALS: BP 98/54; PULSE 61; RESP 16; TEMP 36.7; O2SAT 100
[2022-05-28] MEDS: OXcarbazepine 300 MG TABLET PO (20:50)
[2022-05-28] MEDS: traZODone HCL 50 MG TABLET PO (23:09)
[2022-05-29 06:00] VITALS: BP 99/62; PULSE 64; RESP 16; TEMP 36.7; O2SAT 99
[2022-05-29] MEDS: OXcarbazepine 300 MG TABLET PO ×2 (09:03→21:35)
[2022-05-29] MEDS: Gabapentin 100 MG CAPSULE PO ×2 (09:03→21:35)
[2022-05-29 12:26] LABS: Bilirubin Direct 0.4 mg/dL (0.0-0.5)
--- NOTE | 2022-05-29 12:34 | HO.PSYCHPN ---
Subjective Subjective Date of Service: 05/29/22 Reason For Visit: Recurrent Major Depression; SI Interim History: says ok not too depressed; no SI. Says he feels he'd do best if he could discharge and return to partial; does not feel he needs to be on locked unit. Discussed elevated bilirubin; he denies any hx of jaundice and never heard of [place]. Agrees to redraw labs as software writer considers lithium. Mental Status Exam Mental Status Exam Narrative: Pt is alert and oriented; behavior is cooperative, friendly and calm; patient is not in distress; dressed in casual attire with unkempt hair but adequate hygiene; mood is described as alright and affect a little blunted; eye contact appropriate; Speech is normal rate, volume and prosody and not pressured; no psychomotor agitation/retardation present; thought process is organized and goal directed; Thought content is on diagnosis; otherwise pertinent to relevant topics and without any delusional content, paranoid ideations or grandiosity; denies any SI/HI. There is no evidence of perceptual disturbance. Patients insight and judgment are impaired but adequate. Diagnostics Vital Signs (24Hr): Vital Signs - 24 hr 05/28/22 20:42 05/29/22 06:00 Temperature 98.1 F 98.1 F Pulse Rate 61 64 Respiratory Rate 16 16 Blood Pressure 98/54 L 99/62 Pulse Oximetry 100 99 Oxygen Delivery Method Room Air Room Air BMI result Body Mass Index 21.4 Labs Results: 05/27/22 10:10 05/28/22 07:56 Labs: Laboratory Results - last 48 hr 05/27/22 05/28/22 05/28/22 15:54 07:56 07:56 Sodium 141 Potassium 4.1 Chloride 104 Carbon Dioxide 28 Anion Gap 13 BUN 14 Creatinine 0.88 Estim Creat Clear Calc 123.5 Estimated GFR > 60 POC Glucose Fasting Glucose 84 Estimat Average Glucose 88 Hemoglobin A1c % 4.7 Calcium 9.6 Magnesium 2.0 Total Bilirubin 3.4 H Direct Bilirubin 0.4 AST 13 ALT 8 Alkaline Phosphatase 45 Total Protein 6.5 Albumin 4.2 Triglycerides 87 Cholesterol 129 LDL Cholesterol, Calc 70 HDL Cholesterol 42 Vitamin B12 Folate TSH 1.61 Free T4 1.13 Urine Opiates Screen Not Detected Urine Fentanyl Screen Not Detected Ur Barbiturates Screen Not Detected Ur Phencyclidine Scrn Not Detected Ur Amphetamines Screen Not Detected U Benzodiazepines Scrn Not Detected Urine Cocaine Screen Not Detected U Marijuana (THC) Screen Not Detected 05/28/22 05/28/22 07:56 08:17 Sodium Potassium Chloride Carbon Dioxide Anion Gap BUN Creatinine Estim Creat Clear Calc Estimated GFR POC Glucose 80 Fasting Glucose Estimat Average Glucose Hemoglobin A1c % Calcium Magnesium Total Bilirubin Direct Bilirubin AST ALT Alkaline Phosphatase Total Protein Albumin Triglycerides Cholesterol LDL Cholesterol, Calc HDL Cholesterol Vitamin B12 288 Folate 13.6 TSH Free T4 Urine Opiates Screen Urine Fentanyl Screen Ur Barbiturates Screen Ur Phencyclidine Scrn Ur Amphetamines Screen U Benzodiazepines Scrn Urine Cocaine Screen U Marijuana (THC) Screen Imaging Radiology Impressions: ITS Impressions Head CT 05/28/22 09:46 IMPRESSION: No acute intracranial process seen. Medications Medications Current Medications Acetaminophen (Acetaminophen 325 Mg Tablet) 650 mg PO Q6H PRN PRN Reason: Headache/Pain Mild Scale (1-3) Al Hydroxide/Mg Hydroxide (Magnesium Hydrox/Alum Hydrox 30 Ml Oral.Susp) 30 ml PO Q6H PRN PRN Reason: Heartburn/Nausea Gabapentin (Gabapentin 100 Mg Capsule) 100 mg PO BID [facility] Last Admin: 05/29/22 09:03 Dose: 100 mg Hydroxyzine HCl (Hydroxyzine Hcl 25 Mg Tablet) 25 mg PO Q6H PRN PRN Reason: Anxiety Last Admin: 05/28/22 00:28 Dose: 25 mg Magnesium Hydroxide (Milk Of Magnesia 30 Ml Oral.Susp) 30 ml PO DAILY PRN PRN Reason: Constipation Oxcarbazepine (Oxcarbazepine 300 Mg Tablet) 300 mg PO BID [facility] Last Admin: 05/29/22 09:03 Dose: 300 mg Trazodone HCl (Trazodone Hcl 50 Mg Tablet) 50 mg PO BEDTIME PRN PRN Reason: Insomnia Last Admin: 05/28/22 23:09 Dose: 50 mg Allergies Allergies Allergy/AdvReac Type Severity Reaction Status Date / Time Dairy products Allergy Difficulty Uncoded 05/28/22 04:43 Swallowing Assessment & Plan Assessment & Plan (1) MDD (major depressive disorder), recurrent episode: Status: Acute Code(s): F33.9 - Major depressive disorder, recurrent, unspecified (2) Vasovagal syncope: Status: Acute Code(s): R55 - Syncope and collapse Plan Patient is a 21 year old male with a history of anxiety, depression, possibly PTSD, encouraged by PHP to self present for depression and suicidal thinking. Patient reports what sounds like chronic moderate depression that can sometimes get severe; also reports that his mood can fluctuate throughout the day from content to angry to sad, with each feeling lasting an hour or so but never more than a day. Denies any discrete manic episodes or behaviors however patient seems to feel he has bipolar disorder. Patient wants to get back on lithium; bilirubin levels were increased but this may have been an incidental finding when lithium labs were checked. Patient currently denies SI and says he feels outpatient PHP remains his best option And placed a 3 day notice plan: 05/29 mood alright no sI; wants discharge and to do PHP. Wondering if gilberts, re-take bili (elevated unconjugated). Magazine Supervisor agrees that pt maybe albe to discharge to partial, however will need to get collateral first to see why php recommended inpt. Plan: CV; 3 day notice Continue gabapentin Continue Trileptal for now Patient would like to retry it lithium; will consider as he does not want typical antidepressants I spent minutes with the patient and/or on the patient floor today, greater than?50% of which was spent counseling/coordinating care. Patient educated on: diagnosis and medication risk/benefits Informed Consent: understands Reason for contiued inpatient stay Substantial Risk for: stable for discharge
[2022-05-29 18:00] VITALS: BP 107/52; PULSE 73; RESP 16; TEMP 36.7; O2SAT 95
[2022-05-29] MEDS: traZODone HCL 50 MG TABLET PO (21:35)
--- NOTE | 2022-05-30 | ECG_ITS ---
Test Reason : sharp stabbing pain in chest/ heart region Blood Pressure : / mmHG Vent. Rate : 060 BPM Atrial Rate : 060 BPM P-R Int : 130 ms QRS Dur : 096 ms QT Int : 392 ms P-R-T Axes : 050 074 049 degrees QTc Int : 392 ms Normal sinus rhythm Normal ECG No previous ECGs available Referred By: Jorje Pathak Electronically Signed By:TRACY LOW MD
[2022-05-30 08:30] VITALS: BP 109/66; PULSE 90; RESP 18; TEMP 36.2; O2SAT 100
[2022-05-30] MEDS: OXcarbazepine 300 MG TABLET PO (08:40)
[2022-05-30] MEDS: Gabapentin 100 MG CAPSULE PO ×2 (08:40→19:45)
[2022-05-30 09:15] LABS: Alanine Aminotransferase 11 U/L (0-40); Albumin Level 3.9 g/dL (3.5-5.0); Alkaline Phosphatase 41 U/L (39-117); Aspartate Amino Transferase 18 U/L (5-37); Bilirubin Direct 0.4 mg/dL (0.0-0.5); Bilirubin Total 1.2 mg/dL (0.0-1.0)
--- NOTE | 2022-05-30 13:17 | PC.NURSE ---
Patient reported to staff he was experiencing #9 chest pains. Stabbing pain. No radiation, no diaphoresis, sudden onset. States it feels tight . VSS 107/57, HR 74, RR 18, 98% RA. Dr. Pathak notified, Ervin Gonzalez APRN notified. EKG ordered and obtained. NSR. Patient reports tightness continued however pain was less shortly following EKG.
[2022-05-30 13:23] LABS: Anion Gap 16 (12-20); Carbon Dioxide 21 mmol/L (22-29); Chloride 108 mmol/L (96-108); Potassium 4.1 mmol/L (3.3-5.1); Sodium 141 mmol/L (135-145)
[2022-05-30 13:28] LABS: Troponin-I High Sensitivity < 3.5 ng/L (<3.5-35.0)
[2022-05-30 18:30] VITALS: BP 105/54; PULSE 69; RESP 16; TEMP 36.6; O2SAT 100
--- NOTE | 2022-05-30 19:38 | P.PNPSI_ITS ---
Subjective Subjective
--- NOTE | 2022-05-30 19:38 | HO.PSYCHPN ---
Subjective Subjective Date of Service: 05/30/22 Reason For Visit: Recurrent Major Depression; SI Interim History: This morning, patient complained of sudden onset chest pain; vitals were all within normal limits, patient not tachycardic or tachypneic, not diaphoretic, no radiation pain. EKG normal sinus rhythm; QTC WNL; troponins ordered and within normal limits. Patient did not look in any discomfort soon was in the milieu interacting with others, pain resolving on its own. Patient says he is not sure what it was and he did not feel particularly anxious however wonders if maybe anxiety was there any did not know it. Patient continues to ask for discharge early next week saying that he thinks he can do best with partial. However he is grateful for help received on the unit. Patient said that his mood is overall okay. He said that he is fine and denies any SI at all. Reports he is sleeping well. Secondary English Teacher discussed liver/bilirubin labs and possible reasons for bilirubin elevation which today indicates has been trending back towards normal. Patient is still hopeful to get on lithium saying that the week he was on it, he felt his best and most stable. To that and He would like to get off the Trileptal. He agrees with plan to discontinue Trileptal and tomorrow get a repeat bilirubin labs; depending on results he agrees to start lithium and again checked to see if this aggravates bili Mera or not. Mental Status Exam Mental Status Exam Narrative: Pt is alert and oriented; behavior is cooperative, friendly and calm; patient is not in distress; dressed in casual attire with scruffy with unkempt hair but adequate hygiene; mood is described as fine and affect congruent, more expressive; eye contact appropriate; Speech is normal rate, volume and prosody and not pressured; no psychomotor agitation/retardation present; thought process is organized and goal directed; Thought content is on diagnosis, treatment; otherwise pertinent to relevant topics and without any delusional content, paranoid ideations or grandiosity; denies any SI/HI. There is no evidence of perceptual disturbance. Patients insight and judgment are fair. Diagnostics Vital Signs (24Hr): Vital Signs - 24 hr 05/30/22 08:30 05/30/22 18:30 Temperature 97.2 F 97.9 F Pulse Rate 90 69 Respiratory Rate 18 16 Blood Pressure 109/66 105/54 L Pulse Oximetry 100 100 Oxygen Delivery Method Room Air Room Air BMI result Body Mass Index 21.4 Labs Results: 05/27/22 10:10 05/30/22 12:52 Labs: Laboratory Results - last 48 hr 05/28/22 05/30/22 05/30/22 07:56 07:55 12:52 Sodium Potassium Chloride Carbon Dioxide Anion Gap Total Bilirubin 1.2 H Direct Bilirubin 0.4 0.4 AST 18 ALT 11 Alkaline Phosphatase 41 Troponin I High Sens < 3.5 Total Protein 6.0 L Albumin 3.9 05/30/22 12:52 Sodium 141 Potassium 4.1 Chloride 108 Carbon Dioxide 21 L Anion Gap 16 Total Bilirubin Direct Bilirubin AST ALT Alkaline Phosphatase Troponin I High Sens Total Protein Albumin Imaging Radiology Impressions: ITS Impressions Head CT 05/28/22 09:46 IMPRESSION: No acute intracranial process seen. Medications Medications Current Medications Acetaminophen (Acetaminophen 325 Mg Tablet) 650 mg PO Q6H PRN PRN Reason: Headache/Pain Mild Scale (1-3) Al Hydroxide/Mg Hydroxide (Magnesium Hydrox/Alum Hydrox 30 Ml Oral.Susp) 30 ml PO Q6H PRN PRN Reason: Heartburn/Nausea Gabapentin (Gabapentin 100 Mg Capsule) 100 mg PO BID [facility] Last Admin: 05/30/22 08:40 Dose: 100 mg Hydroxyzine HCl (Hydroxyzine Hcl 25 Mg Tablet) 25 mg PO Q6H PRN PRN Reason: Anxiety Last Admin: 05/28/22 00:28 Dose: 25 mg Magnesium Hydroxide (Milk Of Magnesia 30 Ml Oral.Susp) 30 ml PO DAILY PRN PRN Reason: Constipation Oxcarbazepine (Oxcarbazepine 300 Mg Tablet) 300 mg PO BID [facility] Last Admin: 05/30/22 08:40 Dose: 300 mg Trazodone HCl (Trazodone Hcl 50 Mg Tablet) 50 mg PO BEDTIME PRN PRN Reason: Insomnia Last Admin: 05/29/22 21:35 Dose: 50 mg Allergies Allergies Allergy/AdvReac Type Severity Reaction Status Date / Time Dairy products Allergy Difficulty Uncoded 05/28/22 04:43 Swallowing Assessment & Plan Assessment & Plan (1) MDD (major depressive disorder), recurrent episode: Status: Acute Code(s): F33.9 - Major depressive disorder, recurrent, unspecified (2) Vasovagal syncope: Status: Acute Code(s): R55 - Syncope and collapse Plan Patient is a 21 year old male with a history of anxiety, depression, possibly PTSD, encouraged by PHP to self present for depression and suicidal thinking. Patient reports what sounds like chronic moderate depression that can sometimes get severe; also reports that his mood can fluctuate throughout the day from content to angry to sad, with each feeling lasting an hour or so but never more than a day. Denies any discrete manic episodes or behaviors however patient seems to feel he has bipolar disorder. Patient wants to get back on lithium; bilirubin levels were increased but this may have been an incidental finding when lithium labs were checked. Patient currently denies SI and says he feels outpatient PHP remains his best option And placed a 3 day notice plan: 05/29 mood alright no sI; wants discharge and to do PHP. Wondering if gilberts, re-take bili (elevated unconjugated). Secondary English Teacher agrees that pt maybe albe to discharge to partial, however will need to get collateral first to see why php recommended inpt. 05/30 patient remains stable, without SI; denies depression still hoping to discharge early next week to partial. Patient very much wants to retry lithium and get off Trileptal. Agrees with plan below Plan: CV; 3 day notice Continue gabapentin Unconjugated Bilirubin levels trending back towards normal DC Trileptal Repeat liver/bilirubin labs in the morning and assess trend; at that point will make a decision whether to retry lithium while continuing to monitor bilirubin level I spent minutes with the patient and/or on the patient floor today, greater than?50% of which was spent counseling/coordinating care. Patient educated on: diagnosis, medication risk/benefits and medical condition Informed Consent: understands Reason for contiued inpatient stay Substantial Risk for: med/psych decompensation
[2022-05-31 08:00] VITALS: BP 98/60; PULSE 70; RESP 16; TEMP 36.4; O2SAT 100
[2022-05-31] MEDS: Gabapentin 100 MG CAPSULE PO ×2 (08:57→21:23)
[2022-05-31] MEDS: hydrOXYzine HCL 25 MG TABLET PO (08:57)
--- NOTE | 2022-05-31 10:45 | PC.NURSE ---
ll nursing documentation in this chart from 05/31/2022 0800am through 10:30 am was completed by Betina Snell RN. I was loggied in in error as Comfort Preciado RN.
[2022-05-31 13:42] LABS: Alanine Aminotransferase 15 U/L (0-40); Alkaline Phosphatase 45 U/L (39-117); Aspartate Amino Transferase 20 U/L (5-37); Bilirubin Direct 0.4 mg/dL (0.0-0.5); Bilirubin Total 1.4 mg/dL (0.0-1.0); Total Protein 6.3 g/dL (6.5-8.0)
--- NOTE | 2022-05-31 15:15 | HO.PSYCHPN ---
Subjective Subjective Date of Service: 05/31/22 Reason For Visit: Recurrent Major Depression; SI Interim History: Patient tearful on approach. He says he hates being on the unit and really wants to discharge. He said that the acuity is bothersome and he does not think he needs to be here but rather go back to [facility]. Language Pathologist shared that this will be communicated to primary team when they return on Tuesday. Patient continued to provide reasons does not need to be on the unit and had some trouble accepting that he needs to remain to discuss further with primary team as of right now play writer has not been able to discuss anything with [facility] staff who at 1 point recommended inpatient admission. Also, given elevated bilirubin, play writer did not want to retry lithium at this time and that means that patient is now not on any medication for his chronic depression, anxiety and mood lability, meaning he would be discharged without any medication. Patient said he is comfortable with this and will just discuss this with his outpatient provider Discussed elevated bilirubin and and need for PCP to explore. 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 has an arrhythmia though not evident on EKGs during this admission Mental Status Exam Mental Status Exam Narrative: Pt is alert and oriented; behavior is cooperative, friendly and calm; patient is not in distress; dressed in casual attire with scruffy with unkempt hair but adequate hygiene; mood is described as fine and affect congruent, more expressive; eye contact appropriate; Speech is normal rate, volume and prosody and not pressured; no psychomotor agitation/retardation present; thought process is organized and goal directed; Thought content is on diagnosis, treatment; otherwise pertinent to relevant topics and without any delusional content, paranoid ideations or grandiosity; denies any SI/HI. There is no evidence of perceptual disturbance. Patients insight and judgment are fair. Diagnostics Vital Signs (24Hr): Vital Signs - 24 hr 05/30/22 18:30 05/31/22 08:00 Temperature 97.9 F 97.6 F Pulse Rate 69 70 Respiratory Rate 16 16 Blood Pressure 105/54 L 98/60 Pulse Oximetry 100 100 Oxygen Delivery Method Room Air Room Air BMI result Body Mass Index 21.4 Labs Results: 05/27/22 10:10 05/30/22 12:52 Labs: Laboratory Results - last 48 hr 05/30/22 05/30/22 05/30/22 07:55 12:52 12:52 Sodium 141 Potassium 4.1 Chloride 108 Carbon Dioxide 21 L Anion Gap 16 Total Bilirubin 1.2 H Direct Bilirubin 0.4 AST 18 ALT 11 Alkaline Phosphatase 41 Troponin I High Sens < 3.5 Total Protein 6.0 L Albumin 3.9 05/31/22 12:57 Sodium Potassium Chloride Carbon Dioxide Anion Gap Total Bilirubin 1.4 H Direct Bilirubin 0.4 AST 20 ALT 15 Alkaline Phosphatase 45 Troponin I High Sens Total Protein 6.3 L Albumin 4.0 Imaging Radiology Impressions: ITS Impressions Head CT 05/28/22 09:46 IMPRESSION: No acute intracranial process seen. Medications Medications Current Medications Acetaminophen (Acetaminophen 325 Mg Tablet) 650 mg PO Q6H PRN PRN Reason: Headache/Pain Mild Scale (1-3) Al Hydroxide/Mg Hydroxide (Magnesium Hydrox/Alum Hydrox 30 Ml Oral.Susp) 30 ml PO Q6H PRN PRN Reason: Heartburn/Nausea Gabapentin (Gabapentin 100 Mg Capsule) 100 mg PO BID [facility] Last Admin: 05/31/22 08:57 Dose: 100 mg Hydroxyzine HCl (Hydroxyzine Hcl 25 Mg Tablet) 25 mg PO Q6H PRN PRN Reason: Anxiety Last Admin: 05/31/22 08:57 Dose: 25 mg Magnesium Hydroxide (Milk Of Magnesia 30 Ml Oral.Susp) 30 ml PO DAILY PRN PRN Reason: Constipation Trazodone HCl (Trazodone Hcl 50 Mg Tablet) 50 mg PO BEDTIME PRN PRN Reason: Insomnia Last Admin: 05/29/22 21:35 Dose: 50 mg Allergies Allergies Allergy/AdvReac Type Severity Reaction Status Date / Time Dairy products Allergy Difficulty Uncoded 05/28/22 04:43 Swallowing Assessment & Plan Assessment & Plan (1) MDD (major depressive disorder), recurrent episode: Status: Acute Code(s): F33.9 - Major depressive disorder, recurrent, unspecified (2) Vasovagal syncope: Status: Acute Code(s): R55 - Syncope and collapse Plan Patient is a 21 year old male with a history of anxiety, depression, possibly PTSD, encouraged by PHP to self present for depression and suicidal thinking. Patient reports what sounds like chronic moderate depression that can sometimes get severe; also reports that his mood can fluctuate throughout the day from content to angry to sad, with each feeling lasting an hour or so but never more than a day. Denies any discrete manic episodes or behaviors however patient seems to feel he has bipolar disorder. Hospital course: Patient wants to get back on lithium; bilirubin levels were increased but this may have been an incidental finding when lithium labs were checked. Patient currently denies SI and says he feels outpatient PHP remains his best option And placed a 3 day notice plan: 05/29 mood alright no sI; wants discharge and to do PHP. Wondering if roberta, re-take bili (elevated unconjugated). Language Pathologist agrees that pt maybe albe to discharge to partial, however will need to get collateral first to see why php recommended inpt. 05/30 patient remains stable, without SI; denies depression still hoping to discharge early next week to partial. Patient very much wants to retry lithium and get off Trileptal. -This morning, patient complained of sudden onset chest pain; vitals were all within normal limits, patient not tachycardic or tachypneic, not diaphoretic, no radiation of pain.? EKG normal sinus rhythm; QTC WNL; troponins ordered and within normal limits and pain resolved on it's own and patient soon back in the milieu comfortably socializing with peers. 05/31 patient said that he is overall okay and denies any SI and wants discharge. Language Pathologist explains that this is likely to come very soon but he will need to discuss it with primary team tomorrow. This was difficult for patient to accept who kept giving reasons why he should be discharged, citing stability, irritations on the unit (several peers are in fact quite irritating), wanting to go back to [facility], being safe at home, and having an outpatient prescriber. Language Pathologist again explained that these are all valid reasons and that the primary team will discuss that with him tomorrow. Language Pathologist also shared that patient's journey towards this admission was not in significant and warrants primary team to discuss with PHP. To play writer's understanding, 1. patient was suicidal which led him to be admitted to the partial day program. 2. While at partial the staff there advised them to go to the inpatient unit. 3. This past week he got suicidal, went to the ED and asked for inpatient admission. While patient has demonstrated good behavior and impulse control on the unit and denied any SI, it seems to this play writer that patient has been on a clear trajectory towards this inpatient admission which warrants further exploration. Also, this patient has a history of depression and suicidality, and currently is off all medications (he wanted Trileptal discontinued because it made him foggy; lithium not restarted-see below; Does not want to destroy all anti depressants); at this time, play writer thinks it is in patient's best interest to have this discussed and planned out by his primary team when they return on Tuesday. Regarding elevated unconjugated bilirubin and lithium: Discussed elevated bilirubin and and need for PCP to explore. Further lab analysis shows that it is elevated unconjugated bilirubin. This finding seems to be independent of lithium and only found incidentally when labs were checked. Patient was only on lithium for a week and has been off it for about a (days?) week, yet levels have remained elevated. Because of this, play writer did not want to restart lithium. While lithium is seldom if ever the cause of elevated bilirubin, there are case reports where lithium can trigger or further elevate bilirubin in patients with an underlying disorder such as [place]/other organic causes. The fact that the etiology of this elevated bilirubin is still undetermined and that patient wants discharge [facility] (where play writer/hospital team cannot follow him), makes restarting this medication not an option at this time. 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 This additional information again makes play writer hesitant to add on a medication last minute. Plan: CV; 3 day notice Discuss Dispo with primary team; Get PHP collateral Continue gabapentin Unconjugated Bilirubin levels trending back towards normal DC Trileptal Repeat liver/bilirubin shows remains elevated and a little bit higher than day before Will not restart lithium at this time I spent minutes with the patient and/or on the patient floor today, greater than?50% of which was spent counseling/coordinating care. Patient educated on: diagnosis, medication risk/benefits and medical condition Informed Consent: understands Reason for contiued inpatient stay Substantial Risk for: other
[2022-05-31] MEDS: LORazepam 0.5 MG TABLET PO (17:34)
[2022-05-31 20:45] VITALS: BP 107/55; PULSE 78; RESP 16; TEMP 36.8; O2SAT 96
[2022-05-31] MEDS: traZODone HCL 50 MG TABLET PO (21:23)
[2022-06-01] MEDS: Gabapentin 100 MG CAPSULE PO (08:51)
[2022-06-01 09:00] VITALS: BP 104/58; PULSE 88; RESP 16; TEMP 36.6; O2SAT 96
--- NOTE | 2022-06-01 12:06 | PM.PSYDC ---
DS: Providers Provider Date of Service: 06/01/22 Date of admission: 05/27/22 23:29 Primary care physician: Unknown Physician Consults: 05/28/22 08:31 Consult to Neurology Routine Consulting Provider: [facility] Reason for consultation: ?seizure vs syncope DS: Diagnosis Discharge Diagnosis (1) MDD (major depressive disorder), recurrent episode: Status: Acute (2) Vasovagal syncope: Status: Acute DS: Medications Discharge Medications Home Medications: Home Medications Medication Instructions Recorded Confirmed gabapentin 100 mg capsule 100 mg PO BID 05/27/22 05/27/22 Mental Status Exam Mental Status Exam Narrative: Pt is alert and oriented; behavior is cooperative, friendly and calm; patient is not in distress; dressed in casual attire with scruffy with unkempt hair but adequate hygiene; mood is described as relieved, excited, and affect congruent, more expressive; eye contact appropriate; Speech is normal rate, volume and prosody and not pressured; no psychomotor agitation/retardation present; thought process is organized and goal directed; Thought content is on diagnosis, treatment; otherwise pertinent to relevant topics and without any delusional content, paranoid ideations or grandiosity; denies any SI/SIBI/HI/AVH Patients insight and judgment are fair. Data Data Completed and Pending Completed studies during hospitalization [Text1]: 05/27/22 05/27/22 05/27/22 10:05 10:10 10:10 WBC 5.7 RBC 4.83 Hgb 14.6 Hct 42.1 MCV 87.2 MCH 30.2 MCHC 34.7 RDW 11.8 Plt Count 235 MPV 9.2 L Immature Gran % (Auto) 0.2 Neut % (Auto) 53.0 Lymph % (Auto) 37.7 Camas % (Auto) 6.5 Eos % (Auto) 2.1 Baso % (Auto) 0.5 Lymph # (Auto) 2.1 Camas # (Auto) 0.4 Eos # (Auto) 0.1 Baso # (Auto) 0.0 Abs Immat Gran (auto) 0.01 Absolute Neuts (auto) 3.0 Absolute Nucleated RBC 0.000 Nucleated RBC % (auto) 0.0 Sodium 140 Potassium 4.2 Chloride 104 Carbon Dioxide 29 Anion Gap 11 L BUN 13 Creatinine 0.86 Estim Creat Clear Calc 126.4 Estimated GFR > 60 POC Glucose Random Glucose 89 Fasting Glucose Estimat Average Glucose Hemoglobin A1c % Calcium 9.6 Magnesium Total Bilirubin 2.0 H Direct Bilirubin AST 13 ALT 9 Alkaline Phosphatase 46 Troponin I High Sens Total Protein 6.7 Albumin 4.5 Triglycerides Cholesterol LDL Cholesterol, Calc HDL Cholesterol Vitamin B12 Folate TSH Free T4 Salicylates < 5.0 L Urine Opiates Screen Urine Fentanyl Screen Acetaminophen < 1 Ur Barbiturates Screen Ur Phencyclidine Scrn Ur Amphetamines Screen U Benzodiazepines Scrn Urine Cocaine Screen U Marijuana (THC) Screen Ethyl Alcohol < 10 COVID-19 (ALESSIO) Negative COVID-19 Clin Com See Note 05/27/22 05/28/22 05/28/22 15:54 07:56 07:56 WBC RBC Hgb Hct MCV MCH MCHC RDW Plt Count MPV Immature Gran % (Auto) Neut % (Auto) Lymph % (Auto) Camas % (Auto) Eos % (Auto) Baso % (Auto) Lymph # (Auto) Camas # (Auto) Eos # (Auto) Baso # (Auto) Abs Immat Gran (auto) Absolute Neuts (auto) Absolute Nucleated RBC Nucleated RBC % (auto) Sodium 141 Potassium 4.1 Chloride 104 Carbon Dioxide 28 Anion Gap 13 BUN 14 Creatinine 0.88 Estim Creat Clear Calc 123.5 Estimated GFR > 60 POC Glucose Random Glucose Fasting Glucose 84 Estimat Average Glucose 88 Hemoglobin A1c % 4.7 Calcium 9.6 Magnesium 2.0 Total Bilirubin 3.4 H Direct Bilirubin 0.4 AST 13 ALT 8 Alkaline Phosphatase 45 Troponin I High Sens Total Protein 6.5 Albumin 4.2 Triglycerides 87 Cholesterol 129 LDL Cholesterol, Calc 70 HDL Cholesterol 42 Vitamin B12 Folate TSH 1.61 Free T4 1.13 Salicylates Urine Opiates Screen Not Detected Urine Fentanyl Screen Not Detected Acetaminophen Ur Barbiturates Screen Not Detected Ur Phencyclidine Scrn Not Detected Ur Amphetamines Screen Not Detected U Benzodiazepines Scrn Not Detected Urine Cocaine Screen Not Detected U Marijuana (THC) Screen Not Detected Ethyl Alcohol COVID-19 (ALESSIO) COVID-Rentify 05/28/22 05/28/22 05/30/22 07:56 08:17 07:55 WBC RBC Hgb Hct MCV MCH MCHC RDW Plt Count MPV Immature Gran % (Auto) Neut % (Auto) Lymph % (Auto) Cam[place] % (Auto) Eos % (Auto) Baso % (Auto) Lymph # (Auto) Cam[place] # (Auto) Eos # (Auto) Baso # (Auto) Abs Immat Gran (auto) Absolute Neuts (auto) Absolute Nucleated RBC Nucleated RBC % (auto) Sodium Potassium Chloride Carbon Dioxide Anion Gap BUN Creatinine Estim Creat Clear Calc Estimated GFR POC Glucose 80 Random Glucose Fasting Glucose Estimat Average Glucose Hemoglobin A1c % Calcium Magnesium Total Bilirubin 1.2 H Direct Bilirubin 0.4 AST 18 ALT 11 Alkaline Phosphatase 41 Troponin I High Sens Total Protein 6.0 L Albumin 3.9 Triglycerides Cholesterol LDL Cholesterol, Calc HDL Cholesterol Vitamin B12 288 Folate 13.6 TSH Free T4 Salicylates Urine Opiates Screen Urine Fentanyl Screen Acetaminophen Ur Barbiturates Screen Ur Phencyclidine Scrn Ur Amphetamines Screen U Benzodiazepines Scrn Urine Cocaine Screen U Marijuana (THC) Screen Ethyl Alcohol COVID-19 (ALESSIO) COVID-[employer] Com 05/30/22 05/30/22 05/31/22 12:52 12:52 12:57 WBC RBC Hgb Hct MCV MCH MCHC RDW Plt Count MPV Immature Gran % (Auto) Neut % (Auto) Lymph % (Auto) Cam[place] % (Auto) Eos % (Auto) Baso % (Auto) Lymph # (Auto) [place] # (Auto) Eos # (Auto) Baso # (Auto) Abs Immat Gran (auto) Absolute Neuts (auto) Absolute Nucleated RBC Nucleated RBC % (auto) Sodium 141 Potassium 4.1 Chloride 108 Carbon Dioxide 21 L Anion Gap 16 BUN Creatinine Estim Creat Clear Calc Estimated GFR POC Glucose Random Glucose Fasting Glucose Estimat Average Glucose Hemoglobin A1c % Calcium Magnesium Total Bilirubin 1.4 H Direct Bilirubin 0.4 AST 20 ALT 15 Alkaline Phosphatase 45 Troponin I High Sens < 3.5 Total Protein 6.3 L Albumin 4.0 Triglycerides Cholesterol LDL Cholesterol, Calc HDL Cholesterol Vitamin B12 Folate TSH Free T4 Salicylates Urine Opiates Screen Urine Fentanyl Screen Acetaminophen Ur Barbiturates Screen Ur Phencyclidine Scrn Ur Amphetamines Screen U Benzodiazepines Scrn Urine Cocaine Screen U Marijuana (THC) Screen Ethyl Alcohol COVID-19 (ALESSIO) COVID-19 epacube Com Imaging Diagnostic Imaging Impressions Head CT 05/28/22 09:46 IMPRESSION: No acute intracranial process seen. DS: Summary Hospital Course Hospital Course: per 05/28 admission note: Patient is a 21 year old male with a history of anxiety, depression, possibly PTSD, encouraged by PHP to self present for depression and suicidal thinking.? Patient reports that he has been overall depressed and will sometimes have really down days which typically only last for about a day.? Patient had a such day this past week where he had suicidal thinking, though he denies any plan or intent and so self presented.? Patient says that sometimes he can get a 2 week period of feeling severely depressed were has no motivation and can hardly get out of bed (He reports low energy, poor sleep, fair appetite, decreased self worth, constant worry, frequent tearfulness and thoughts of not wanting to be alive); however mostly he experiences up and down mood that fluctuates throughout the day; patient says he can be content in the morning and then will get triggered by something, a thought or in interaction, and become angry or depressed which only lasts for an hour or so but never more than a day; that said the depressive moments can be filled with hopeless feelings and thoughts that life is not worth living or he will never get better and can be accompanied by SI.? Patient denies any discrete manic episodes or behaviors, however he reports strong family history of bipolar disorder.? Patient says that he has failed many antidepressants, however when he lists them there are only 3: Prozac which he only took for a week, Wellbutrin which he took as the child and Zoloft which he said he took years ago and does not know the dose.? Patient seemed to want to encouraged to diagnosis of bipolar disorder and would sometimes alter his reporting and said he would spend lots of money or feel like having sex with women other than his girlfriend; content writer inquired if he wanted a diagnosis of bipolar disorder and patient said he does not want it...? He just wants to feel better.? Patient said recently he looked at a list for borderline personality disorder and felt that it fit him very well.? Patient endorses a history of trauma though does not disclose details; he has intermittent flashbacks but not commonly; some triggers like loud noises and slamming doors bother; no nightmares.? Patient denies drug or alcohol abuse.? Patient was recently started on Trileptal. Past Psychiatric History: Recently at [facility] No history of psychiatric admissions Reports 2 suicide attempts, most recently about a year ago Outpatient psychiatric provider for the last 2 years. Does not have a therapist at this time ? Medication trials: Prozac; low-dose for only 7 days Zoloft:? Not sure dose duration -Lamictal:? Got a rash but it does not sound like Praveen Itz's -Risperdal -Wellbutrin; but only as a child -Most recently on Abilify, which he reports was effective in stabilizing mood, however when dose was increased to 5mg, patient reports extreme restlessness-? akathesia. Stopped Abiify few weeks ago -currently taking gabapentin BID which he reports is helpful with anxiety and irritable bowel -was on lithium but was discovered to have elevated bilirubin so was discontinued; patient denied any side effects; it is possible that bilirubin was elevated prior to lithium's initiation and the two our unrelated Medical Evaluation Reviewed: Yes Rapid response called on pt around 815am this morning for seizure during blood draw. Pt having routine labs drawn began feeling light headed and appeared to have syncopized per [facility] with arms flexed bilaterally. No other tonic/clonic movements. Pt has no history seizures but does report hx vasovagal episodes during blood draws. Pt disoriented upon waking but quickly becomes lucid and is a&o x4. VS BP 102/55, HR 55, 100% RA. Heart RRR, no murmurs, lungs cta. No pallor. EKG shows NSR. Pt feels tired but denies ongoing lightheadedness. No cp, sob, palpitations, headaches, confusion. Post like vasovagal reaction to blood draw. However, given seizure reported by staff, will order neuro checks, neuro consult, and head ct. Orhostatic vs in several hours. Recommend increased fluid intake. Will recheck pt in several hours. REPLACED BY [facility] Medical History?(Updated 05/28/22 @ 12:05 by Blake Rendon MD) History of tachycardia IBS (irritable bowel syndrome) Post concussion syndrome Family History: Reporting strong family history of Bipolar disorder, depression and suicide. Social History: Currently not employed. Reports losing several jobs--too overwhelmed at [employer] frustrated at other jobs and has quit Substance History: Denies Trauma History: Patient says history of trauma but does not reveal 05/29: says ok not too depressed; no SI. Says he feels he'd do best if he could discharge and return to partial; does not feel he needs to be on locked unit. Discussed elevated bilirubin; he denies any hx of jaundice and never heard of Hematite. Agrees to redraw labs as content writer considers lithium. 05/30: This morning, patient complained of sudden onset chest pain; vitals were all within normal limits, patient not tachycardic or tachypneic, not diaphoretic, no radiation pain.? EKG normal sinus rhythm; QTC WNL; troponins ordered and within normal limits.? Patient did not look in any discomfort soon was in the milieu interacting with others, pain resolving on its own.? Patient says he is not sure what it was and he did not feel particularly anxious however wonders if maybe anxiety was there any did not know it.? Patient continues to ask for discharge early next week saying that he thinks he can do best with partial.? However he is grateful for help received on the unit. Patient said that his mood is overall okay.? He said that he is fine and denies any SI at all.? Reports he is sleeping well.? Organic Preparation Technician discussed liver/bilirubin labs and possible reasons for bilirubin elevation which today indicates has been trending back towards normal.? Patient is still hopeful to get on lithium saying that the week he was on it, he felt his best and most stable.? To that and? He would like to get off the Trileptal.? He agrees with plan to discontinue Trileptal and tomorrow get a repeat bilirubin labs; depending on results he agrees to start lithium and again checked to see if this aggravates bili Mera or not. 05/31: Patient tearful on approach.? He says he hates being on the unit and really wants to discharge.? He said that the acuity is bothersome and he does not think he needs to be here but rather go back to [facility].? Organic Preparation Technician shared that this will be communicated to primary team when they return on Tuesday.? Patient continued to provide reasons does not need to be on the unit and had some trouble accepting that he needs to remain to discuss further with primary team as of right now content writer has not been able to discuss anything with [facility] staff who at 1 point recommended inpatient admission.? Also, given elevated bilirubin, content writer did not want to retry lithium at this time and that means that patient is now not on any medication for his chronic depression, anxiety and mood lability, meaning he would be discharged without any medication.? Patient said he is comfortable with this and will just discuss this with his outpatient provider Discussed elevated bilirubin and and need for PCP to explore. 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 discuss labs, writes bilis out for him. planning to return to PHP. discharged to outpt care. Precis, per rebel note of 05/31: Patient is a 21 year old male with a history of anxiety, depression, possibly PTSD, encouraged by PHP to self present for depression and suicidal thinking. Patient reports what sounds like chronic moderate depression that can sometimes get severe; also reports that his mood can fluctuate throughout the day from content to angry to sad, with each feeling lasting an hour or so but never more than a day.? Denies any discrete manic episodes or behaviors however patient seems to feel he has bipolar disorder. Hospital course: Patient wants to get back on lithium; bilirubin levels were increased but this may have been an incidental finding when lithium labs were checked. Patient currently denies SI and says he feels outpatient PHP remains his best option And placed a 3 day notice plan: 05/29 mood alright no sI; wants discharge and to do PHP. Wondering if roberta, re-take bili (elevated unconjugated). Organic Preparation Technician agrees that pt maybe albe to discharge to partial, however will need to get collateral first to see why php recommended inpt. 05/30 patient remains stable, without SI; denies depression still hoping to discharge early next week to partial.? Patient very much wants to retry lithium and get off Trileptal.? -This morning, patient complained of sudden onset chest pain; vitals were all within normal limits, patient not tachycardic or tachypneic, not diaphoretic, no radiation of pain.? EKG normal sinus rhythm; QTC WNL; troponins ordered and within normal limits and pain resolved on it's own and patient soon back in the milieu comfortably socializing with peers. 05/31 patient said that he is overall okay and denies any SI and wants discharge.? Organic Preparation Technician explains that this is likely to come very soon but he will need to discuss it with primary team tomorrow.? This was difficult for patient to accept who kept giving reasons why he should be discharged, citing stability, irritations on the unit (several peers are in fact quite irritating), wanting to go back to [facility], being safe at home, and having an outpatient prescriber.? Organic Preparation Technician again explained that these are all valid reasons and that the primary team will discuss that with him tomorrow.? Organic Preparation Technician also shared that patient's journey towards this admission was not in significant and warrants primary team to discuss with PHP. To content writer's understanding, 1. patient was suicidal which led him to be admitted to the partial day program.? 2. While at partial the staff there advised them to go to the inpatient unit.? 3. This past week he got suicidal, went to the ED and asked for inpatient admission.? While patient has demonstrated good behavior and impulse control on the unit and denied any SI, it seems to this content writer that patient has been on a clear trajectory towards this inpatient admission which warrants further exploration.? Also, this patient has a history of depression and suicidality, and currently is off all medications (he wanted Trileptal discontinued because it made him foggy; lithium not restarted-see below;? Does not want to destroy all anti depressants); at this time, content writer thinks it is in patient's best interest to have this discussed and planned out by his primary team when they return on Tuesday. Regarding elevated unconjugated bilirubin and lithium: Discussed elevated bilirubin and and need for PCP to explore.? Further lab analysis shows that it is elevated unconjugated bilirubin.? This finding seems to be independent of lithium and only found incidentally when labs were checked.? Patient was only on lithium for a week and has been off it for about a (days?) week, yet levels have remained elevated.? Because of this, content writer did not want to restart lithium.? While lithium is seldom if ever the cause of elevated bilirubin, there are case reports where lithium can trigger or further elevate bilirubin in patients with an underlying disorder such as Hematite/other organic causes.? The fact that the etiology of this elevated bilirubin is still undetermined and that patient wants discharge [facility] (where content writer/hospital team cannot follow him), makes restarting this medication not an option at this time.? Additionally, nurse informed content writer that patient has a history of cardiac symptoms, a advertising consultant and reportedly has an arrhythmia (though not evident on 2 different EKGs during this admission).? This additional information again makes content writer hesitant to add on a medication last minute. Time Spent with Patient Time attestation: Total time spent providing and/or coordinating discharge services: Time spent: Greater than 30 minutes Discharge Plan Discharge Anticipated Discharge Date/Time: 06/01/22 14:00 Patient Disposition: Home, Self-Care Discharge Diagnosis: MDD, recurrent, moderate Referrals: [facility] [Other] - 06/02/22 11:00 am (IN PERSON, PLEASE WEAR MASK) [facility] [Other] - 06/08/22 1:30 pm (TELEHEALTH) [facility] [Other] - 1 Week (Peter will contact Provider Elly BEJARANO for appointment) Lenny Mcdermott MD [Physician] - 1 Month (Patient has preexisting appointment with this advertising consultant) Discharge Medications: Continued gabapentin 100 mg capsule 100 mg PO BID Discontinued oxcarbazepine 300 mg tablet 1 tab PO BID Discharge Orders: Discharge Order (Routine); Ordered 06/01/22 Ordered By: Iam Link Diet: Advance to usual diet Activity on Discharge: As tolerated Stand Alone Forms: Patient Portal Discharge page, Community Support Print Language: Luxembourger Care Plan Goals: remain safe and stable in the outpatient treatment setting Health Concerns: none Plan of Treatment: take medications as prescribed, attend appointments as scheduled Assessment: not at imminent risk of harm to self or others Patient Instructions: Depression (ED) Discharge Date/Time: 06/01/22 14:00
--- NOTE | 2022-06-01 14:00 | PC.NURSE ---
Peter is alert, fully oriented, pleasant and cooperative with discharge process. He denies ideation, plan or intent to harm self or others. He denies physical complaint. Peter verbalizes understanding of discharge plan including need to make follow up appointment with pcp ( no VALE) and attend dischrge appointments. He verbalizes understanding of discharge medication regime.
== END 2022-06-01 14:00 | disposition home or self-care (01) | DRG 751 ==
LOC: HO.ED 17:04 → HO.PADLT16 23:32
PROVIDERS: Clinical Nurse Specialist Psychiatric/Mental Health, Adult; Physician Assistant Medical; Psychiatry & Neurology Psychiatry; Admitting Provider Psychiatry & Neurology Psychiatry; Emergency Provider Emergency Medicine Emergency Medical Services; Visit Provider Psychiatry & Neurology Psychiatry
DX: F33.1 Major depressive disorder, recurrent, moderate (principal); R45.851 Suicidal ideations; R55 Syncope and collapse; Z20.822 Contact with and (suspected) exposure to COVID-19; Z23 Encounter for immunization; Z87.891 Personal history of nicotine dependence
CPT/HCPCS: 36415; 70450; 80051; 80053; 80061; 80076; 80143; 80179; 80307; 82077; 82248; 82607; 82746; 82947; 83036; 83735; 84439; 84443; 84484; 85025; 87635; 90686; 93005; 99285

== ENCOUNTER 2022-06-03 10:17 | Outpatient (REF) | payer BC, SELFPAY ==
[2022-06-03 11:37] LABS: Amphetamine Screen Urine Not Detected (Not Detect); Barbiturates, Urine Not Detected (Not Detect); Benzodiazepines Screen Urine Not Detected (Not Detect); Cannabinoid Screen Urine Not Detected (Not Detect); Cocaine Screen Urine Not Detected (Not Detect); Fentanyl, urine Not Detected (Not Detect); Opiate Screen Urine Not Detected (Not Detect); Phencyclidine Screen Urine Not Detected (Not Detect)
--- NOTE | 2022-06-03 15:35 | P.HPPSP_ITS ---
[facility] Date of Service: 06/03/22 Chief Complaint: F33.1 Sources of Information: patient interviewed, chart reviewed and crisis/core team assessment reviewed [facility] Medical Problems Affecting Mental Status: No Narrative: Patient is a 21 year old single male, referred to [facility] through inpatient unit at [facility] [place] as a step-down, where patient had been admitted from 05/28/2022 through 06/01/2022. Patient is a readmit back to [facility], after self presented to [facility] ED last Tuesday due to symptoms of worsening depression and SI. Patient reports an unpleasant experience as an inpatient, as it was his 1st time on the unit. He did not find it helpful. Continues with some passive SI, no intent or plan. Trileptal was stopped during inpatient stay, as patient did not feel comfortable continuing it at that time. Please refer to intake assessment completed by clinician, as well as discharge summary for further details. Patient stated he is happy to return to [facility], as he has found this program to be helpful. Patient concerned regarding possible bipolar diagnosis verses borderline personality diagnosis verses depression. Reports he has symptoms of all 3, and would like to discuss further. Also concerned about elevated bilirubin. Reports drink several beers last evening, but is concerned about liver function. Past Psychiatric History: Recent [place] [facility] [place], from [id number]. Recently at [facility] No history of psychiatric admissions Reports 2 suicide attempts, most recently about a year ago Outpatient psychiatric provider for the last 2 years. Does not have a therapist at this time Medication trials: Prozac; low-dose for only 7 days Zoloft: Not sure dose duration -Lamictal: Got a rash but it does not sound like Praveen Itz's -Risperdal -Wellbutrin; but only as a child -Most recently on Abilify, which he reports was effective in stabilizing mood, however when dose was increased to 5mg, patient reports extreme restlessness-? akathesia. Stopped Abiify few weeks ago -currently taking gabapentin BID which he reports is helpful with anxiety and irritable bowel -was on lithium but was discovered to have elevated bilirubin so was discontinu ed; patient denied any side effects; it is possible that bilirubin was elevated prior to lithium's initiation and the two our unrelated -trileptal, stopped after one week, did not find helpful Medical Evaluation Reviewed: Yes [facility] Medical History History of tachycardia IBS (irritable bowel syndrome) Post concussion syndrome Family History: Reporting strong family history of Bipolar disorder, depression and suicide. Social History: Currently not employed. Reports losing several jobs--too overwhelmed at [employer] frustrated at other jobs and has quit Recently offered position at [employer]. Substance History: Drinks alcohol (several beers) 1-2 times per week. Does not identify as an issue. Trauma History: Patient says history of trauma but does not reveal Diagnostics Labs Labs: Laboratory Results - last 48 hr 06/03/22 09:30 Urine Opiates Screen Not Detected Urine Fentanyl Screen Not Detected Ur Barbiturates Screen Not Detected Ur Phencyclidine Scrn Not Detected Ur Amphetamines Screen Not Detected U Benzodiazepines Scrn Not Detected Urine Cocaine Screen Not Detected U Marijuana (THC) Screen Not Detected Meds/Allergies Meds Home Medications Medication Instructions Recorded Confirmed Type gabapentin 100 mg capsule 100 mg PO BID 05/27/22 06/03/22 History Allergies Allergies Allergy/AdvReac Type Severity Reaction Status Date / Time Dairy products Allergy Difficulty Uncoded 05/28/22 04:43 Swallowing Mental Status Exam Mental Status Exam Narrative: Well-developed, well-nourished male, in NAD. Brightens upon approach Patient Appearance: Appropriate Patient Orientation: Person, Place, Time and Situation Level of Consciousness: Appropriate Patient Behavior: Appropriate, Cooperative and Good Eye Contact Mood Description: Depressed and Anxious Affect Description: Appropriate and Anxious Patient Cognition Impaired: No Ability to Follow Directions: Good Speech Pattern: Clear and Appropriate Memory Description: Intact Hallucinations: None Delusions: Not Present Thought Process: Intact Thought Content: positive for Intact and positive for Suicidal Ideation (Reports passive, no intent or plan.) Depressive Symptoms: Increased Anxiety, Difficulty Sleeping, Loss of Int. in Activity, Increased Fatigue and Thoughts of /Suicide Judgement: Fair Assessment & Plan Assessment & Plan (1) MDD (major depressive disorder), recurrent episode: Status: Acute Code(s): F33.9 - Major depressive disorder, recurrent, unspecified Assessment and Plan: Patient returns to [facility] after brief hospitalization for reports of increased symptoms of depression with SI. Patient states he had an unpleasant experience inpatient, and did not find it helpful at all. Reports today that his anxiety is increased, with some tachycardia earlier today. He states that this occurs when he drinks caffeine or alcohol. He did drink 2 beers last evening, but states he does not want to due to concern for his liver. Patient does have elevated bilirubin, plans to follow-up with his primary care provider. He would like to resume lithium, as he had been started briefly several weeks ago with low-dose. Discussed patient obtaining workup with his primary care provider, and that possibly reinitiating lithium with his outpatient provider going forward. He was in agreement with this. Patient requesting increase of gabapentin. Discussed this in detail. Patient will contact outpatient provider to discuss this further. Patient reports he no longer believes he has bipolar disorder, as he has not ever experienced krissy or hypomania. He believes he does meet the criteria for borderline personality disorder. We discussed this in detail, including recommendations such as dialectical behavioral therapy. Discussed traits of borderline personality disorder, in that this technical writer believes he does have some of these traits, however not certain at this time if full diagnosis of borderline PD is appropriate. He currently does not have a therapist, and has been working with clinician here for a referral. He says that he would like to explore this further with a therapist, as he believes he has symptoms of PTSD at times due to past traumas. Patient states he does have some anxiety and depression continuing, with passive SI. No intent or plan, feels safe. We discussed adding SSRI such as Lexapro. Risks and benefits, side effects, alternatives to treatment discussed. Patient reports that he will read more about the medication before making a decision at this time. Plan 1. Continue with current [facility] plan of care. 2. Continue with current medication as prescribed by outpatient provider. 3. Follow-up as per protocol. Patient educated on: diagnosis, medication risk/benefits and therapeutic strategies Informed Consent: understands Reason for continued partial hosp. stay Substantial Risk for: harm to self and inability to function Certification I certify that partial hospital treatment is medically necessary due to the symptoms and problems resulting from the patient's mental illness and the failure to treat the patient at the partial hospital level of care would likely result in the patient requiring inpatient psychiatric care which could not be prevented at a less intensive level of care.
== END 2022-06-03 10:18 | disposition home or self-care (01) ==
LOC: HO.PHPLNP 10:17
PROVIDERS: Visit Provider Nurse Practitioner Psychiatric/Mental Health
DX: F33.1 Major depressive disorder, recurrent, moderate (principal)
CPT/HCPCS: 80307; 90792

== ENCOUNTER 2022-06-11 09:15 | Outpatient (RCR) | payer BC, SELFPAY ==
--- NOTE | 2022-06-02 15:09 | PC.NURSE ---
After speaking with pt, I put in a referral for pt to attend [facility] ([facility]) via email on 05/26/22. On 05/31/22, I received an email back stating [facility] is not taking referrals for BC?BS members, as they have no licensed clinicians. I discussed this with pt. I then called [facility] to see about referring him there, and was told they are only doing telehealth, nothing in-person as pt had requested.
[2022-06-03 12:24] VITALS: BP 100/58; PULSE 76; TEMP 36.1
--- NOTE | 2022-06-03 12:25 | PC.NURSE ---
Case opened in treatment team.
[2022-06-03 12:26] VITALS: BMI 21.4
--- NOTE | 2022-06-03 12:55 | PC.ADMIT ---
Patient is a 21 year old male who initially was referred to [facility] by crisis and attended [facility] for 12 days however prior to coming to the program on 05/27/22 patient called staff as he was experiencing increased SI and stated he was going to the ER for a crisis evaluation as he felt he may need to go inpatient. Patient was subsequently admitted to Inpatient level of care and was referred back to [facility]. Patient continues to struggle with depression, anxiety, and low self esteem. Patient stated he has low motivation to do anything. Patient reports he has lingering SI however denied plan or intent to kill himself. Stated he would never go inpatient again as it was too traumatic. Patient reports he has a history of chest pain and reports he believes it is d/t anxiety. Stated he had 2 EKG's while inpatient as he had a syncope episode after getting blood drawn for labs ordered. Patient denied SOB, no diaphoresis, and patient did not appear to be in distress. Recommended patient go to ER if having chest pain however patient stated he did not want to go and reiterated it was d/t anxiety. VSS. Patient stated he believes he has borderline personality disorder as he was reading information about BPD while at lunch and stated he has most of the symptoms. Patient is interested in further support with DBT after discharge. Abiola Elliott is aware. Patient is alert and oriented x4. Calm and cooperative. Presented with depressed mood anxious affect. Reports passive SI, denied plan or intent to kill himself. Patient given a copy of his safety plan if needed. Medications reconciled with inpatient medical record and patient. Patient reports taking medication as directed.
--- NOTE | 2022-06-04 09:34 | PC.NURSE ---
Patient left a voicemail message stating he will not be in the program today as he does not feel like talking and he needs the day to, gather his thoughts . Stated he is planning on going to the youth worker and he will be in on Tuesday, for sure . PHP staff aware.
--- NOTE | 2022-06-09 14:19 | HO.PHPIOP ---
I met with pt to review treatment plan, schedule, and aftercare options.
--- NOTE | 2022-06-10 15:14 | HO.PHPIOP ---
After speaking with pt, I faxed over a referral for pt to [facility].
--- NOTE | 2022-06-14 15:07 | HO.PHPIOP ---
Pt called out today, stating he has an appointment with his PCP. He also asked for a call back to discuss his desire to discharge from [facility], as he said he is feeling quite a bit better. I called back and left him a message stating it's his choice, and asked him to pls call to discuss aftercare plans.
== END 2022-06-11 23:59 | disposition home or self-care (01) ==
LOC: HO.PHPA 09:15
PROVIDERS: Visit Provider Psychiatry & Neurology Psychiatry
DX: F33.1 Major depressive disorder, recurrent, moderate (principal); F43.12 Post-traumatic stress disorder, chronic; Z79.899 Other long term (current) drug therapy
CPT/HCPCS: 90853